=== PATIENT | male | born 1950 | race Caucasian/White ===

== ENCOUNTER 2018-08-30 20:29 | Inpatient (IN) ==
[2018-08-30] MEDS ORDERED: TYLENOL PO ONE (21:32)
--- NOTE | 2018-08-30 22:18 | Diag Imaging Result Doc PS360 ---
EXAM: CHEST-2 VIEWS HISTORY: sob fever TECHNIQUE: Chest two views COMPARISON: 06/09/2016 FINDINGS: Interval development of a large right upper lobe mass. The left lung is well expanded and clear. No cardiomegaly. No vascular distention. No pleural effusions. IMPRESSION: Right upper lobe mass. Electronically signed by Jose Vu 08/30/2018 10:16 PM
[2018-08-30 22:34] LABS: BASO# 0.05 X1000 (0.0-0.2); BASO% 0.3 % (0.0-0.8); EOS# 0.09 X1000 (0.0-0.7); EOS% 0.5 % (0.0-10.0); HEMATOCRIT 27.5 % (42.0-52.0); HEMOGLOBIN 8.7 g/dL (14.0-18.0); IMM GRAN# 0.04 X1000 (0.0-0.04); IMM GRAN% 0.2 % (0.0-0.5); LYMPH# 2.11 X1000 (1.2-3.4); MCH 23.3 PG (27-31); MCHC 31.6 g/dL (33-37); MCV 73.7 FL (81-99); MONO# 1.47 X1000 (0.11-0.59); MONO% 7.7 % (1.7-9.3); MPV 8.2 FL (7.4-10.4); NEUT# 15.42 X1000 (1.4-6.5); NEUT% 80.3 % (42.2-75.2); PLT 638 X1000 (130-400); RBC 3.73 XMIL (4.7-6.1); RDW 16.7 % (11.5-14.5); WBC 19.18 X1000 (4.8-10.8)
[2018-08-30 22:37] LABS: INR 1.12
[2018-08-30 22:38] LABS: PTT 47.8 Seconds (22.3-41.8)
[2018-08-30 22:39] LABS: AGAP 13; ALBUMIN 3.4 g/dL (3.5-5.0); ALKALINE PHOSPHATASE 109 U/L (32-122); BUN 10 mg/dL (8-22); CALCIUM 9.1 mg/dL (8.8-10.2); CHLORIDE 97 mmol/L (98-107); CK PROFILE 42 U/L (24-204); COSMO 269; CREATININE 0.8 mg/dL (0.7-1.2); ESTIMATED GFR > 60; GLUCOSE 104 mg/dL (70-104); GOT 24 U/L (10-34); GPT 24 U/L (10-44); POTASSIUM 4.5 mmol/L (3.5-5.1); SODIUM 135 mmol/L (136-145); TCO2 25 mmol/L (25-35)
[2018-08-30] MEDS ORDERED: ROCEPHIN 1 GM in NS 50 ML IV ONE (22:46)
[2018-08-30] MEDS ORDERED: ZITHROMAX 500 MG/NS 500 MG/250 ML IVPB IV SCH (23:00)
[2018-08-30] MEDS ORDERED: TYLENOL ONE (23:43)
[2018-08-30] MEDS ORDERED: TYLENOL PO PRN (23:53)
[2018-08-30] MEDS ORDERED: ZOFRAN IV PRN (23:53)
[2018-08-30 23:57] LABS: BILIRUBIN URINE NEGATIVE (NEGATIVE); BLOOD URINE 1+ (NEGATIVE); GLUCOSE URINE NEGATIVE (NEGATIVE); KETONE URINE TRACE mg/dL (NEGATIVE); LEUKOCYTES URINE TRACE (NEGATIVE); NITRITE URINE NEGATIVE (NEGATIVE); PROTEIN URINE TRACE mg/dL (NEGATIVE); UROBILINOGEN URINE NORMAL
[2018-08-30] MEDS ORDERED: APRESOLINE IV PRN (23:57)
[2018-08-30 23:59] LABS: URINE BACTERIA 1+ /HFP; URINE CRYSTAL CA OXALATE PRESENT /HPF; URINE EPITHELIAL CELLS <10 /HPF (<10); URINE RBC <10 /HPF (<10); URINE WBC <10 /HPF (<10)
[2018-08-31] LABS: CLARITY CLEAR (CLEAR); COLOR YELLOW; URINE SOURCE CLEAN CATCH
--- NOTE | 2018-08-31 00:05 | PROVIDER DOCUMENTATION ---
This chart was entered by Sierra Forrest Scribe, acting as scribe for Jack Triana CRNP. HPI-General Adult - General Chief Complaint: Cough Stated Complaint: ABNORMAL LABS Time Seen by Provider: 08/30/18 21:09 Source: patient Allergies/Adverse Reactions: Patient Allergies Allergy/AdvReac Type Severity Reaction Status Date / Time No Known Allergies Allergy Verified 08/30/18 21:02 Home Medications: Home Medication List Medication Instructions Recorded Confirmed Last Taken Type Cyanocobalamin 1,000 microgm IM Q30D #10 vial 11/10/15 Unknown Rx Duloxetine [Cymbalta] 30 mg PO QAM #30 capsule 11/10/15 Unknown Rx Fluticasone 50 Mcg Nasal [place] 2 spray CLYDE BID #1 bottle 11/10/15 Unknown Rx [Flonase] LISINOpril [Prinivil] 5 mg PO DAILY #30 tablet 11/10/15 Unknown Rx Mirtazapine [Remeron] 15 mg PO QHS #30 tablet 11/10/15 Unknown Rx Omeprazole [Prilosec] 40 mg PO DAILY@0700 30 Days 11/10/15 Unknown Rx capsule Tamsulosin [Flomax] 0.4 mg PO QHS #30 capsule 11/10/15 Unknown Rx - History of Present Illness -Gen Adult Nature of Presenting Problems: pt is a 68 yr old male presenting from [facility] with report of elevated white count- [id number], and questionable chest xray, pt reports AFC told him to come to ER for further eval. pt was treated approx 3 weeks ago for sinus infection-Augmentin, and has not been able to get over it, pt reports continued low grade fevers for 3 weeks. pt reports fatigue, fever, cough and congestion Location of Pain/Injury: reports: generalized Pain Radiation: reports: no radiation Quality of Pain: reports: aching Severity: reports: mild Onset/Duration: reports: other (3+ weeks) Timing: reports: still present Context/Activities at Onset: reports: light activity Modifying Factors: improves with: analgesics (tylenol-no improvement), other medication (Augmentin without improvement) Associated Symptoms: reports: cough, EENT symptoms, fatigue, fever/chills, sinus congestion/drainage, weakness Similar Symptoms Previously?: Yes Recently seen or treated by another doctor?: Yes (see hpi) Review of Systems - Adult - REVIEW OF SYSTEMS - ADULT Constitutional: reports: fever, fatique Eyes: reports: no symptoms reported Ears, Nose, Mouth & Throat: reports: sinus problem. denies: ear pain, throat pain Cardiovascular: denies: chest pain, palpitations, syncope Respiratory: reports: cough. denies: shortness of breath, wheezing Gastrointestinal: reports: no symptoms reported Genitourinary: reports: no symptoms reported Musculoskeletal: reports: muscle aches Integumentary: reports: no symptoms reported Neurological: reports: headache/migraines. denies: dizziness/vertigo Psychiatric: reports: no symptoms reported Endocrine: reports: no symptoms reported Hematologic/Lymphatic: reports: no symptoms reported Allergic/Immunologic: reports: no symptoms reported All Other Systems: Reviewed and Negative Past History - Adult - PAST MEDICAL HISTORY-ADULT Review of Records: reports: Old Records Reviewed, Nursing Assessment Review, Medications Reviewed, Social history reviewed & non-contributory. Major Childhood Illnesses: reports: denies history Cardiovascular: reports: denies history Respiratory: reports: denies history Gastrointestinal: reports: denies history Obstetrical/Gynecological: reports: denies history Genitourinary: reports: denies history Musculoskeletal: reports: denies history Neurological: reports: denies history Endocrine/Immune: reports: denies history Other Conditions: reports: denies history - IMMUNIZATION STATUS Childhood Immunizations: See Nurse Assessment Flu Vaccine: See Nurse Assessment - FAMILY HISTORY Family History: reviewed, not pertinent - SOCIAL HISTORY Smoking: cigarettes Provider spent 3-5 mins advising pt. on dangers of tobacco.: Discussed manners to quit use, and f/u contacts for add'l counseling. Substance Use: denies Living Situation: family Physical Exam-General - PHYSICAL EXAM-ADULT Initial Vital Signs Reviewed: Yes - CONSTITUTIONAL General Appearance: alert, no apparent distress - EYES Eyes: PERRL/EOMI - HEAD, EARS, NOSE, MOUTH & THROAT HENMT: normocephalic/atraumatic, moist mucous membranes, normal ENT inspection, TMs normal, pharynx normal - NECK Neck: non-tender, full range of motion, supple, normal inspection - RESPIRATORY Respiratory: chest non-tender, lungs clear, normal breath sounds, no pleuratic chest pain, no respiratory distress, no accessory muscle use - CARDIOVASCULAR Cardiovascular: normal peripheral pulses, regular rate, rhythm, no edema - GASTROINTESTINAL (ABDOMEN) Abdominal Exam: normal bowel sounds, non tender, soft - LYMPHATIC Lymphatic: no adenopathy - MUSCULOSKELETAL Back Exam: normal inspection, no CVA tenderness, no vertebral tenderness Extremity: normal range of motion, non-tender, normal inspection - SKIN Integumentary: normal color, normal turgor, warm/dry - NEUROLOGIC Neurologic: grossly normal, no motor/sensory deficits - PSYCHIATRIC Psych/Mental Status: normal mood/affect Progress - PLAN OF CARE/RESULTS Progress/Plan/Lab Results: Vital Signs - 8 hr 08/30/18 20:54 Temperature 100.9 F H Pulse Rate 84 Respiratory Rate 16 Blood Pressure 164/68 O2 Sat by Pulse Oximetry 97 Orders Category Date Time Status Cardiac Monitoring DIRECTED Care 08/30/18 21:14 Active IV Insertion ORDERED Care 08/30/18 21:14 Active CHEST-2 VIEWS [RAD] Stat Exams 08/30/18 21:15 Ordered BLOOD CULTURE [BLDCUL] Stat Lab 08/30/18 21:14 Uncollected CBC WITH DIFF [HEME] Stat Lab 08/30/18 21:14 Uncollected CK PROFILE [SP CHEM] Stat Lab 08/30/18 21:14 Uncollected COMPREHENSIVE METABOLIC PANEL [CHEM] Stat Lab 08/30/18 21:14 Uncollected LACTATE, PLASMA [CHEM] Lab 08/30/18 21:15 Uncollected LACTATE, PLASMA [CHEM] Lab 08/31/18 00:15 Uncollected LACTATE, PLASMA [CHEM] Lab 08/31/18 03:15 Uncollected PROTIME WITH INR [COAG] Stat Lab 08/30/18 21:14 Uncollected PTT [COAG] Stat Lab 08/30/18 21:14 Uncollected TROPONIN T Stat Lab 08/30/18 21:[address] W/POSS RFLX CULT [URINALYSIS] Stat Lab 08/30/18 21:14 Uncollected Acetaminophen [Tylenol] Med 08/30/18 21:32 Discontinued 1,000 mg PO NOW ONE Oxygen Device Stat Oth 08/30/18 21:14 Active Result Diagrams: 08/30/18 22:07 08/30/18 22:07 - REASSESSMENT Reassessment #1 Time Reassessed: 22:48 (Pt resting. Made aware of results and possible admission. agrees with plan) Reassessment #2 Time Reassessed: 23:47 (Informed pt and spouse of admission at [facility]. ) - XRAY 1 XRAY Study: Chest Impression: See EMR Report (Interval development of a large right upper lobe mass. The left lung is well expanded and clear. No cardiomegaly. No vascular distention. No pleural effusions. IMPRESSION: Right upper lobe mass. Electronically signed by Jose Vu 08/30/2018 10:16 PM) - CONSULTS/PCP/HOSPITALIST Notification #1 *Consult/PCP/Hospitalist*: Dr Gandhi Time Discussed: 22:49 (suggests calling [facility] for admission so pt can be consulted by pulmonary) #2 Consult: Dr Cochran Time Discussed: 23:44 Consult Disposition: Admit Departure - Departure Date of Disposition Decision: 08/30/18 Time of Disposition Decision: 22:50 DIAGNOSIS: Lung mass Anemia Qualifiers: Anemia type: unspecified type Qualified Code(s): D64.9 - Anemia, unspecified Disposition: ADMITTED INPATIENT 09 Certified Medical Emergency: Emergent Condition: Fair Referrals and Follow-Ups: None,PCP [Primary Care Provider] - - Critical Care Note This patient required my direct & personal management of CC.: No Attestation - Physician/ GRETCHEN Attestation Patient care was provided by Advanced Practice Provider:: Yes Advanced Practice Provider:: Jack Triana Advanced Practice Provider documentation review:: The Mid-level provider documentation, treatment plan and medical decision making was reviewed by the physician who agrees with all treatment and medical decision making by the P. The physician spent face to face time with patient:: No Advanced Practice Provider documentation review:: Supervising physician onsite and consulted in the evaluation and care of this patient. The physician did not have a face to face encounter with the patient. This chart was documented by the indicated scribe, (Sierra Forrest Scribe) and accurately reflects the services I performed and decisions made by me, Jack Triana CRNP, as attested by the provider's signature.
[2018-08-31] MEDS: NS 1,000 ML IV SCH ×3 (01:45→23:46)
[2018-08-31] MEDS ORDERED: TESSALON ONE (05:04)
[2018-08-31] MEDS ORDERED: TUSSIONEX LIQUID ONE (05:04)
[2018-08-31] MEDS ORDERED: ZOSYN ONE (05:04)
[2018-08-31] MEDS ORDERED: NS 50 ML ONE (05:07)
--- NOTE | 2018-08-31 05:46 | HISTORY AND PHYSICAL ---
CHIEF COMPLAINT: Coughing up blood. HISTORY OF PRESENT ILLNESS: Mr. Somers is a 68-year-old male with a past medical history of hypertension and depression who started having hemoptysis 3 weeks ago. Apparently it has been fairly copious according to the . He originally went to [facility] and was treated for a sinus infection 3 weeks ago. He did not begin to feel better so he came into the emergency room tonight. He was worked up and found to be anemic with a large right upper lung mass on the chest x-ray. He will be admitted to [facility] for further evaluation and treatment. PREVIOUS SURGICAL HISTORY: Hernia repair 22 years ago. SOCIAL HISTORY: Two-thirds of a pack of cigarettes daily. No alcohol. No illicit drugs. FAMILY HISTORY: Mother had breast cancer. Father from complications from emphysema. ALLERGIES: No known drug allergies. HOME MEDICATIONS: A list of home medications is not available at this time. REVIEW OF SYSTEMS: A 14-point review of systems conducted with the patient. Pertinent positives listed above in the HPI. All others are negative. PHYSICAL EXAMINATION: VITAL SIGNS: Temperature 99.8, pulse 88, respirations 18, blood pressure 137/69, oxygen saturation 95%. GENERAL: A 68-year-old male lying in the ER stretcher, alert oriented x3, in no acute distress. HEENT: Head is atraumatic, normocephalic. Pupils equal, round, reactive to light. Extraocular eye movements intact. Sclerae are anicteric. Conjunctivae are pale. Oral mucosa is moist. NECK: Supple. No JVD. No thyromegaly. Trachea is midline. CARDIAC: S1, S2 appreciated. No murmurs, gallops, or rubs. LUNGS: Clear to auscultation except for wheezing in the left lower lobe. No rhonchi or rales. Symmetric rise and fall with respirations. ABDOMEN: Soft, nondistended, nontender. Bowel sounds present in all 4 quadrants, normoactive. No pulsatile mass. No organomegaly. EXTREMITIES: No clubbing, cyanosis, or edema. Two-plus pedal pulses bilaterally. INTEGUMENTARY: Warm, dry and intact. Pale. No acute lesions or rash. NEUROLOGICAL: Alert and oriented x3. Cranial nerves 2-12 grossly intact. DIAGNOSTIC DATA: Chest x-ray shows a large right upper lobe mass. LABORATORY DATA: WBC 19.18, hemoglobin 8.7, hematocrit 27.5, platelet count 638,000. Sodium 135, potassium 4.5, chloride 97, carbon dioxide 25, BUN 10, creatinine 0.8, glucose 104. ASSESSMENT AND PLAN: 1. New lung mass. Consult stretching machine tender frame and oncologist. The patient is not complaining of any pain. Will add Zofran and Tylenol p.r.n. to his medication profile. 2. Possible post obstructive pneumonia. Will start Zosyn 3.375 g q.6 hours. Blood cultures are pending. 3. Leukocytosis secondary to #1 and #2. 4. Anemia. Will recheck laboratory data. He is not at transfusion level at this point. 5. Depression and anxiety. Will continue home medications when reconciled. 6. Hypertension. Will continue home medications when reconciled. Will give hydralazine 10 mg IV p.r.n. now for systolic blood pressure greater than 160. Further recommendations per the patient's clinical course. Dictated by JOEL Flaherty for Zuhair Cochran MD Independent exam and assessment performed by nj. No LNpathy noted in the supraclavicular and axillary areas. CEA ordered. Antitussive agents given to decrease hemoptysis. cc: JOEL Flaherty MD [facility]
[2018-08-31 09:15] LABS: IRON SATURATION 8 %; TIBC 118 ug/dL; TOTAL IRON 10 ug/dL (53-167); UNBOUND IRON 108 ug/dL (112-346)
[2018-08-31 09:29] LABS: AGAP 9; BUN 9 mg/dL (8-22); CALCIUM 8.5 mg/dL (8.8-10.2); CHLORIDE 100 mmol/L (98-107); COSMO 269; CREATININE 0.7 mg/dL (0.7-1.2); ESTIMATED GFR > 60; GLUCOSE 94 mg/dL (70-104); POTASSIUM 4.6 mmol/L (3.5-5.1); SODIUM 135 mmol/L (136-145); TCO2 26 mmol/L (25-35)
[2018-08-31 09:32] LABS: FERRITIN 390 ng/mL (30-400)
[2018-08-31 09:37] LABS: BASO# 0.03 X1000 (0.0-0.2); BASO% 0.2 % (0.0-0.8); EOS% 0.6 % (0.0-10.0); HEMATOCRIT 27.1 % (42.0-52.0); HEMOGLOBIN 8.4 g/dL (14.0-18.0); IMM GRAN# 0.05 X1000 (0.0-0.04); IMM GRAN% 0.3 % (0.0-0.5); LYMPH# 1.81 X1000 (1.2-3.4); LYMPH% 10.5 % (20.5-51.1); MCH 23.3 PG (27-31); MCV 75.3 FL (81-99); MONO# 1.38 X1000 (0.11-0.59); NEUT# 13.82 X1000 (1.4-6.5); NEUT% 80.4 % (42.2-75.2); PLT 621 X1000 (130-400); RDW 16.7 % (11.5-14.5); WBC 17.19 X1000 (4.8-10.8)
[2018-08-31] MEDS: ROCEPHIN 1 GM in NS 50 ML IV SCH (10:45)
--- NOTE | 2018-08-31 15:04 | Diag Imaging Result Doc PS360 ---
EXAM: CT THORAX W/O CONTRAST INDICATION: SOB TECHNIQUE: This exam was performed using automated exposure control, adjustment of mA or kV according to patient size, and/or use of iterative reconstruction technique. COMPARISON: No prior CT is available for comparison. FINDINGS: There is a large right upper lobe apical lung mass measuring approximately 9.2 x 7.3 cm axially that is highly suspicious for neoplasm. It is slightly invading the posterior chest wall near the apex. There is mild erosion of the cortex of the adjacent third rib posteriorly. No local bony metastatic disease is identified, otherwise. There is mild perilesional pneumonitis around the mass. There is a tiny 4 mm nodule in the left hepatic lobe on image 60 of series 3. This is more nonspecific and certainly may represent a tiny granuloma. The lungs are clear, otherwise. There is no pleural fluid collection and no pneumothorax. There are borderline and mildly prominent shotty mediastinal lymph nodes that are nonspecific. The largest is a pretracheal lymph node measuring up to 2.8 cm in the long axis and 1.6 cm in the short axis. IMPRESSION: Large right upper lobe lung mass at the apex causing mild erosion of the posterior aspect of the third rib, highly suspicious for neoplasm. Electronically signed by Desmond Olivia 08/31/2018 3:02 PM
--- NOTE | 2018-08-31 15:40 | Diag Imaging Result Doc PS360 ---
EXAM: CT ABD/PELVIS W/PO AND IV CON INDICATION: new lung mass TECHNIQUE: This exam was performed using automated exposure control, adjustment of mA or kV according to patient size, and/or use of iterative reconstruction technique. COMPARISON: None. FINDINGS: There are a couple of very small low dense foci in the left hepatic lobe that are nonspecific. They do not appear to enhance. They certainly may represent small cysts. Consider continued surveillance is recommended given the findings in the chest, however. The gallbladder, spleen, and pancreas are unremarkable. There is a left adrenal mass measuring 2.0 x 1.7 cm axially. Although it may represent an adenoma, it is nonspecific. A metastatic lesion cannot completely be excluded given the chest findings. There is a small simple appearing left renal cyst. The kidneys are unremarkable, otherwise. The urinary bladder is partially distended. The urinary bladder wall appears mildly thickened. This could be due to underdistention. Correlate clinically to exclude cystitis. There is trace nonspecific free fluid layering in the pelvis. The GI tract is grossly unremarkable. No focal inflammatory changes or free abdominal gas is appreciated. There are lumbar spine degenerative changes. There is nothing to suggest local bony metastatic disease to the abdomen or pelvis. IMPRESSION: 1.Left adrenal mass that is nonspecific and certainly may represent an adenoma. Continued surveillance is recommended given the findings in the chest. 2.A couple of tiny low dense foci involving the left hepatic lobe that are nonspecific but may represent small hepatic cysts. Consider continued surveillance given the findings in the chest. Mild urinary bladder wall thickening that is probably due to underdistention. Correlate clinically to exclude a component of cystitis. Electronically signed by Desmond Olivia 08/31/2018 3:38 PM
[2018-08-31] MEDS: PRILOSEC PO SCH (18:19)
--- NOTE | 2018-08-31 22:24 | CONSULTATION ---
DATE OF CONSULTATION: 08/31/2018 REQUESTING PROVIDER: JOEL Flaherty. REASON FOR CONSULTATION: New lung mass. HISTORY OF PRESENT ILLNESS: This is a 68-year-old, male with a medical history of hypertension, depression, post traumatic stress disorder, and tobacco dependence. He presented to the ER last night from [facility] with leukocytosis and questionable chest x-ray. In the ER, initial workup revealed a large right upper lung mass, leukocytosis, anemia, and thrombocytosis. He has been admitted to the medical floor for further evaluation and management. At the time of my examination, he is resting in bed with eyes closed. His at the bedside reports that he was treated for sinusitis with Augmentin 3 weeks ago. Since then, he started having hemoptysis. He also has low-grade fever, fatigue, worsening productive cough, mild shortness of breath, and chest congestion. He denies night sweating, weight change, chest pain or palpitation. PAST MEDICAL HISTORY: 1. Hypertension. 2. Depression. 3. Post traumatic stress disorder. 4. Tobacco dependence. 5. Hernia repair 22 years ago. SOCIAL HISTORY: Patient lives at home with his . He currently smokes 2/3 packs per day but used to smoke maximally up to 2 packs per day. He has been smoking 51 years. He has no history of alcohol or illicit drug use. FAMILY HISTORY: Positive for COPD and cancer. ALLERGIES: No known drug allergies. REVIEW OF SYSTEMS: A 10-point review of systems was conducted and the pertinent's are listed within the HPI, otherwise noncontributory. PHYSICAL EXAMINATION: Vital Signs: Blood pressure 120/66, pulse 74, respiratory rate 16, oxygen saturation 100% on room air. HEENT: Atraumatic. Trachea midline. Mucosa pink and slightly dry. Respiratory: Even and unlabored. Lung expansion equal bilaterally. Auscultation reveals rhonchi bilaterally. Cardiovascular: Regular rate and rhythm without murmur. Gastrointestinal: Bowel sounds normoactive in all 4 quadrants. Soft, nontender, and nondistended. Extremities: No pedal edema. Neurologic: Alert and oriented x3. Speech fluent. Follows commands. IMAGING DATA: CT chest reveals large right upper lobe lung mass at the apex, causes a mild erosion of the posterior aspect of the third rib, highly suspicious for neoplasm. Mild perilesional pneumonitis around the mass, and a tiny 4 mm nodule in the left hepatic lobe. LAB DATA: White blood cells 17.19, hemoglobin 8.4, hematocrit 27.1, platelet 621,000. Sodium 135, potassium 4.6, chloride 100, carbon dioxide 26, BUN 9, creatinine 0.9. Glucose 94. ASSESSMENT: This is a 68-year-old male with a medical history of hypertension, depression, post traumatic stress disorder, and tobacco dependence. He has been admitted to the medical floor with new lung mass and possible postobstructive pneumonia. 1. New lung mass. CT-guided lung biopsy scheduled tomorrow. Further recommendations pending. I discussed our plan with the patient and his . They showed their understanding and they do not have any questions at this time. Dr. Nelson is on board. 2. Possible postobstructive pneumonia. Continue ceftriaxone and azithromycin. Follow up with chest x-ray and CBC. 3. Tobacco abuse. Educate with patient and his on the importance and the means of smoking cessation. 4. Continue gastrointestinal and deep venous thrombosis prophylaxis. Thank you for the courtesy of this consult. Dictated by JOEL Nash for Dominik Nova MD cc: JOEL Nash MD [facility]
[2018-09-01] MEDS: ZITHROMAX 500 MG/NS 500 MG/250 ML IVPB IV SCH ×2 (00:09→23:08)
[2018-09-01 07:22] LABS: BASO# 0.03 X1000 (0.0-0.2); BASO% 0.2 % (0.0-0.8); EOS# 0.16 X1000 (0.0-0.7); HEMOGLOBIN 8.2 g/dL (14.0-18.0); IMM GRAN# 0.02 X1000 (0.0-0.04); IMM GRAN% 0.1 % (0.0-0.5); INR 1.21; LYMPH# 1.94 X1000 (1.2-3.4); LYMPH% 12.2 % (20.5-51.1); MCH 22.8 PG (27-31); MCHC 30.4 g/dL (33-37); MCV 75.2 FL (81-99); MONO# 1.24 X1000 (0.11-0.59); MONO% 7.8 % (1.7-9.3); MPV 8.9 FL (7.4-10.4); NEUT# 12.52 X1000 (1.4-6.5); NEUT% 78.7 % (42.2-75.2); PLT 620 X1000 (130-400); PROTIME 16.2 Seconds (11.0-16.0); RBC 3.59 XMIL (4.7-6.1); RDW 16.5 % (11.5-14.5); WBC 15.91 X1000 (4.8-10.8)
[2018-09-01 07:23] LABS: PTT 47.5 Seconds (22.3-41.8)
[2018-09-01] MEDS: PRILOSEC PO SCH (07:31)
[2018-09-01 07:33] LABS: AGAP 11; BUN 8 mg/dL (8-22); CALCIUM 9.1 mg/dL (8.8-10.2); CHLORIDE 101 mmol/L (98-107); COSMO 270; CREATININE 0.6 mg/dL (0.7-1.2); ESTIMATED GFR > 60; GLUCOSE 94 mg/dL (70-104); SODIUM 136 mmol/L (136-145); TCO2 24 mmol/L (25-35)
[2018-09-01] MEDS: NS 1,000 ML IV SCH ×3 (09:55→23:08)
[2018-09-01] MEDS: ROCEPHIN 1 GM in NS 50 ML IV SCH (10:15)
[2018-09-01] MEDS: CILOXAN OPHTH SOLN BOTH EYES SCH ×7 (10:30→21:53)
--- NOTE | 2018-09-01 12:59 | Diag Imaging Result Doc PS360 ---
CHEST-2 VIEWS - 09/01/2018 INDICATION: POST BIOPSY COMPARISON: 08/30/2018 FINDINGS: There is no evidence of complication. IMPRESSION: No complication. Electronically signed by Cory Weaver 09/01/2018 12:57 PM
--- NOTE | 2018-09-01 14:31 | Diag Imaging Result Doc PS360 ---
EXAM: BONE SCAN, TOTAL BODY - 08/31/2018 HISTORY: lung mass TECHNIQUE: Radionuclide bone scan. Exam performed using 28.2 mCi technetium 99m MDP administered intravenously. COMPARISON: 08/31/2018 CT thorax without contrast is used for correlation. FINDINGS: There is mild increased activity at midthoracic costovertebral junction on the right. This appears to correspond with degenerative disease visible on the more 01/13/2019 CT thorax. There is increased activity at the upper cervical spine posteriorly on the right, bilateral shoulders, bilateral sternoclavicular joints, bilateral elbows, bilateral hands, bilateral knees, and right foot. The distribution of the increased activity suggests degenerative disease. There is no abnormal activity which is particularly suspicious for metastatic disease identified. IMPRESSION: Scattered areas of increased activity suggestive of degenerative disease. No discrete evidence of metastatic disease to the skeleton. Electronically signed by Haile Okeefe 09/01/2018 2:29 PM
[2018-09-01] MEDS: VENOFER 300 MG in NS 250 ML IV SCH (14:45)
--- NOTE | 2018-09-01 15:12 | PROGRESS NOTE ---
DATE: 09/01/2018 SUBJECTIVE: As per the patient he feels about the same, he is getting today a CT-guided biopsy of the lung mass, CT of the abdomen also showed a left adrenal mass that is nonspecific and certainly may represent an adenoma. Also there is a couple of tiny low-density foci involving of the left hepatic lobe that are nonspecific but may represent a small hepatic cyst. OBJECTIVE: Vital Signs: Temperature 98 degrees, pulse 80, respiratory rate 22, blood pressure 133/63, oxygen saturation 99 on room air. HEENT: Head normocephalic. No trauma. PERRLA. Neck: Supple. No JVD. No masses. Central trachea. Chest: Coarse breath sounds on the left side with some rhonchi. Abdomen: Soft, nontender, nondistended. No hepatosplenomegaly. Extremities: No edema, no clubbing, no cyanosis. Neurological: The patient is alert and oriented x3. No focal deficits. Eyes, his left eye has some discharge and has a pinkish color, no pain. LABORATORY: WBC 15.9, hemoglobin 8.2, hematocrit 27.2, MCV 75.2, platelets 320,000, sodium 136, potassium 4, chloride 101, bicarbonate 24, BUN 8, creatinine 0.6, glucose 94, calcium 9.1. ASSESSMENT AND PLAN: 1. New lung mass, Pulmonary Department and Oncology Department following this patient, he has been placed on medications for possible postobstructive pneumonia, he is getting a CT-guided biopsy of the mass today. 2. Postobstructive pneumonia, continue with antibiotics. 3. Leukocytosis, likely secondary to #1 and 2 getting better. 4. Anemia, we will monitor. Hematology/Oncology on board. 5. Depression and anxiety. Continue with same management. 6. Hypertension. Continue with blood pressure medication, blood pressure has been stable, we will use p.r.n. hydralazine. cc: Aaron Barton MD
--- NOTE | 2018-09-01 15:27 | Diag Imaging Result Doc PS360 ---
CT GUIDED BIOPSY LUNG - 09/01/2018 INDICATION: Lung Mass TECHNIQUE: The risks and benefits of the procedure were discussed with the patient. All questions were answered. Written and verbal informed consent was obtained. Overlying skin was prepped and draped in sterile fashion. Anesthesia was achieved with injection of 10 cc of 1% lidocaine. COMPARISON: 08/31/2018 FINDINGS: The large right upper lobe mass was biopsied with the 6/11 cm 19/20 gauge Inbilinno biopsy needle set. Approximately 10 biopsy specimens were obtained. The needles were withdrawn intact. The patient reported no symptoms from the procedure. IMPRESSION: Successful and uncomplicated CT-guided right lung mass biopsy. Electronically signed by Cory Weaver 09/01/2018 3:25 PM
[2018-09-02] MEDS: CILOXAN OPHTH SOLN BOTH EYES SCH ×12 (02:11→22:07)
[2018-09-02] MEDS: NS 1,000 ML IV SCH ×3 (04:07→22:06)
[2018-09-02] MEDS: PRILOSEC PO SCH (06:20)
[2018-09-02 07:13] LABS: BASO# 0.03 X1000 (0.0-0.2); BASO% 0.2 % (0.0-0.8); EOS# 0.07 X1000 (0.0-0.7); EOS% 0.4 % (0.0-10.0); HEMATOCRIT 24.7 % (42.0-52.0); HEMOGLOBIN 7.5 g/dL (14.0-18.0); IMM GRAN# 0.04 X1000 (0.0-0.04); IMM GRAN% 0.3 % (0.0-0.5); LYMPH# 1.98 X1000 (1.2-3.4); LYMPH% 12.5 % (20.5-51.1); MCH 22.8 PG (27-31); MCHC 30.4 g/dL (33-37); MCV 75.1 FL (81-99); MONO% 9.4 % (1.7-9.3); NEUT# 12.27 X1000 (1.4-6.5); NEUT% 77.2 % (42.2-75.2); PLT 566 X1000 (130-400); RBC 3.29 XMIL (4.7-6.1); RDW 16.4 % (11.5-14.5); WBC 15.89 X1000 (4.8-10.8)
[2018-09-02 07:34] LABS: AGAP 12; BUN 7 mg/dL (8-22); CALCIUM 8.7 mg/dL (8.8-10.2); CHLORIDE 99 mmol/L (98-107); COSMO 266; CREATININE 0.5 mg/dL (0.7-1.2); ESTIMATED GFR > 60; GLUCOSE 96 mg/dL (70-104); POTASSIUM 3.7 mmol/L (3.5-5.1); SODIUM 134 mmol/L (136-145); TCO2 23 mmol/L (25-35)
[2018-09-02] MEDS: VENOFER 300 MG in NS 250 ML IV SCH (08:33)
[2018-09-02] MEDS: ROCEPHIN 1 GM in NS 50 ML IV SCH (10:00)
--- NOTE | 2018-09-02 12:30 | PROGRESS NOTE ---
DATE: 09/02/2018 SUBJECTIVE: No acute events overnight. He had a CT-guided biopsy yesterday without any problem. He is receiving IV iron infusion, tomorrow he will receive the last one, I will discuss the case with Pulmonary Department tomorrow to see if he can go home and follow up as an outpatient. OBJECTIVE: Vital Signs: Temperature 99.8 degrees, pulse 67, respiratory rate 19, blood pressure 108/48, oxygen saturation 96 on room air. HEENT: Head normocephalic. No trauma. PERRLA. Neck: Supple. No JVD. No masses. Central trachea. Chest: Coarse breath sounds on the left side with some rhonchi, mostly at the apex. Abdomen: Soft, nontender, nondistended. No hepatosplenomegaly. Extremities: No edema. No clubbing. No cyanosis. Neurological: The patient is alert and oriented x3. No focal neurological deficits. LABORATORY DATA: WBC 5.8, hemoglobin 7.5, hematocrit 24.7, platelets 566,000. Sodium 134, potassium 3.7, chloride 99, bicarbonate 23, BUN 7, creatinine 0.5, glucose 96, calcium 8.7. ASSESSMENT AND PLAN: 1. New lung mass, Pulmonary department and Oncology department following this patient closely. He just had a CT-guided biopsy done yesterday, he tolerated well the procedure. 2. Likely postobstructive pneumonia. Continue with antibiotics. 3. Leukocytosis, likely secondary to #1 and #2. 4. Anemia, due to iron deficiency. He has been getting iron infusion, tomorrow he will receive the last infusion. 5. Depression and anxiety. Continue with the same management. 6. Hypertension. Continue with same treatment, we will use p.r.n. hydralazine. cc: Aaron Barton MD
[2018-09-02] MEDS: ZITHROMAX 500 MG/NS 500 MG/250 ML IVPB IV SCH (23:08)
[2018-09-03] MEDS: CILOXAN OPHTH SOLN BOTH EYES SCH ×9 (00:56→16:38)
[2018-09-03 07:50] LABS: BASO# 0.03 X1000 (0.0-0.2); BASO% 0.2 % (0.0-0.8); EOS# 0.12 X1000 (0.0-0.7); EOS% 0.7 % (0.0-10.0); HEMATOCRIT 24.4 % (42.0-52.0); HEMOGLOBIN 7.5 g/dL (14.0-18.0); IMM GRAN# 0.05 X1000 (0.0-0.04); IMM GRAN% 0.3 % (0.0-0.5); LYMPH# 2.09 X1000 (1.2-3.4); LYMPH% 12.9 % (20.5-51.1); MCH 23.1 PG (27-31); MCHC 30.7 g/dL (33-37); MCV 75.1 FL (81-99); MONO# 1.45 X1000 (0.11-0.59); MONO% 8.9 % (1.7-9.3); MPV 9.1 FL (7.4-10.4); PLT 593 X1000 (130-400); RBC 3.25 XMIL (4.7-6.1); RDW 16.6 % (11.5-14.5); WBC 16.24 X1000 (4.8-10.8)
[2018-09-03 08:11] LABS: AGAP 13; BUN 6 mg/dL (8-22); CALCIUM 8.5 mg/dL (8.8-10.2); CHLORIDE 99 mmol/L (98-107); COSMO 266; CREATININE 0.7 mg/dL (0.7-1.2); ESTIMATED GFR > 60; GLUCOSE 95 mg/dL (70-104); POTASSIUM 3.8 mmol/L (3.5-5.1); SODIUM 134 mmol/L (136-145); TCO2 22 mmol/L (25-35)
[2018-09-03] MEDS: VENOFER 300 MG in NS 250 ML IV SCH (08:36)
[2018-09-03] MEDS: NS 1,000 ML IV SCH ×2 (08:36→13:11)
[2018-09-03] MEDS: PRILOSEC PO SCH (08:37)
[2018-09-03] MEDS: ROCEPHIN 1 GM in NS 50 ML IV SCH (11:00)
[2018-09-03 12:21] VITALS: BP 115/54
--- NOTE | 2018-09-03 19:02 | DISCHARGE SUMMARY ---
ADMISSION DATE: 08/31/2018 DISCHARGE DATE: 09/03/2018 DISCHARGE DIAGNOSIS: 1. Right lung mass. 2. Post obstructive pneumonia. 3. Anemia, iron deficiency. 4. History of depression and anxiety. 5. Hypertension. PROCEDURES: Chest x-ray dated 08/30/2018 impression, right upper lobe mass. CT scan dated 08/31/2018 impression, large right upper lobe lung mass at the apex causing mild erosion of the posterior aspect of the 3rd rib highly suspicious for neoplasm. Abdomen and pelvis CT scan dated 08/31/2018 impression left adrenal mass that is nonspecific and certainly may represent an adenoma, couple of tiny low dense foci involving the left hepatic lobe that are nonspecific but may represent small hepatic cysts. Bone scan total body done on 08/31/2018 impression scattered areas of increased activity suggestive of degenerative disk, no discrete evidence of metastatic disease to the skeleton. CT guided lung biopsy dated 09/01/2018 impression successful and uncomplicated CT guided right lung mass biopsy. HOSPITAL COURSE: 68-year-old male with a past medical history hypertension, depression who started having hemoptysis 3 weeks ago, apparently is been a fairly amount according to the , he originally went to [facility] and was treated for a sinus infection for 3 weeks, he did not begin to feel better so he came to the emergency department and has been admitted on 08/31/2018. He was worked up and found to be anemic with a large right upper lung mass on the chest x-ray, he was admitted evaluated by Pulmonary Department as well as Hematology/Oncology Department, a CT guided biopsy of the lung has been performed, because of the leukocytosis we believe this patient has pneumonia and we started treating this patient with antibiotics. Since admission the white blood cell count has been decreasing from 19 to 16 today. No fever today but he has a mild low-grade temperature yesterday at 99.8 but upon admission he had a temperature of 100.9 degrees, he is feeling good today, no shortness of breath, no chest pain. Hematology/Oncology Department recommended to treat this patient with iron IV for 3days, today will be his last dose and then he will be discharged home with a strict followup by Pulmonary and Oncology Department. Dr. Nova will evaluate this patient as an outpatient next at 1:30 p.m., the family has been notified as well as the patient and they agree with this, they also need to call for an appointment with Dr. Nelson in 1 to 2 weeks. PHYSICAL EXAMINATION: Temperature 99.4 degrees, pulse 64, respiratory rate 16, blood pressure 115/54, oxygen saturation 98 on room air. HEENT: Head normocephalic. No trauma. PERRLA. Neck: Supple. No JVD. No masses. Central trachea. Chest: Some crepitus at the right upper and mid lung otherwise clear to auscultation. No wheezing, no rales. Abdomen: Soft, nontender, nondistended. No hepatosplenomegaly. Extremities: No edema, no clubbing, no cyanosis. Neurologic: The patient is alert and oriented x3. No focal deficits. LABORATORY: WBC 16.2, hemoglobin 7.5, hematocrit 24.7, MCV 75, platelet 593,000, sodium 134, potassium 3.8, chloride 99, bicarbonate 22, BUN 6, creatinine 0.7, glucose 95, calcium 8.5. DISCHARGE MEDICATIONS: Tylenol 650 mg p.o. q.6 hours as needed for fever, Omnicef 300 mg p.o. twice a day, omeprazole 40 mg p.o. daily, ciprofloxacin ophthalmic solution 2 drops both eyes every 4 hours, [place] 5 one tablet p.o. every 6 hours as needed for pain, azithromycin 200 mg p.o. daily. FOLLOWUP: By Hematology/Oncology Department and with Pulmonary Department, he already will have an appointment with Pulmonary Department next at 1:30 p.m. TIME SPENT: 35 minutes. cc: Aaron Barton MD
== END 2018-09-03 16:21 | disposition home or self-care (01) | DRG 180 ==
LOC: P.ED → ED → P.ED 20:29 → 3N 08-31 06:50 → SUATTDRO 08-31 06:58
PROVIDERS: ATTEND Internal Medicine
CPT/HCPCS: 32405; 71020; 71046; 71250; 74177; 77012; 78306; 80048; 80053; 81001; 82378; 82550; 82607; 82728; 82746; 83540; 83550; 83605; 84443; 84484; 85025; 85610; 85730; 87040; 87088; 88305; 94761; 96365; 96367; 99285; A9270; A9503; J0456; J0696; J1756; J2543; J7030; J7050; Q9967

== ENCOUNTER 2018-09-22 21:12 | Inpatient (IN) ==
[2018-09-22 22:14] LABS: BASO# 0.02 X1000 (0.0-0.2); BASO% 0.1 % (0.0-0.8); HEMATOCRIT 28.8 % (42.0-52.0); HEMOGLOBIN 9.2 g/dL (14.0-18.0); LYMPH# 1.21 X1000 (1.2-3.4); LYMPH% 5.6 % (20.5-51.1); MCH 24.8 PG (27-31); MCHC 31.9 g/dL (33-37); MCV 77.6 FL (81-99); MONO# 0.54 X1000 (0.11-0.59); MONO% 2.5 % (1.7-9.3); MPV 8.9 FL (7.4-10.4); NEUT# 19.73 X1000 (1.4-6.5); NEUT% 91.8 % (42.2-75.2); PLT 480 X1000 (130-400); RBC 3.71 XMIL (4.7-6.1); RDW 19.6 % (11.5-14.5)
[2018-09-22 22:23] LABS: INR 1.13; PROTIME 15.5 Seconds (11.0-16.0)
[2018-09-22 22:24] LABS: PTT 39.9 Seconds (22.3-41.8)
[2018-09-22 22:45] LABS: AGAP 13; ALB/GLOB RATIO 0.9; ALKALINE PHOSPHATASE 110 U/L (32-122); BUN 17 mg/dL (8-22); CALCIUM 8.9 mg/dL (8.8-10.2); CHLORIDE 96 mmol/L (98-107); CK PROFILE 14 U/L (24-204); COSMO 262; CREATININE 0.7 mg/dL (0.7-1.2); ESTIMATED GFR > 60; GLUCOSE 94 mg/dL (70-104); GOT 23 U/L (10-34); GPT 32 U/L (10-44); SODIUM 130 mmol/L (136-145); TCO2 21 mmol/L (25-35); TOTAL BILIRUBIN 0.79 mg/dL (0.20-1.00); TOTAL PROTEIN 6.5 g/dL (6.3-8.3)
[2018-09-22] MEDS ORDERED: NS 1,000 ML IV ONE ×2 (23:27→23:28)
[2018-09-23] MEDS ORDERED: NORCO-5 PO ONE (00:02)
[2018-09-23] MEDS ORDERED: ROCEPHIN 2 GM in NS 50 ML IV ONE (02:04)
[2018-09-23 02:09] LABS: URINE SOURCE CLEAN CATCH
[2018-09-23 02:15] LABS: BILIRUBIN URINE NEGATIVE (NEGATIVE); BLOOD URINE TRACE (NEGATIVE); COLOR ORANGE; GLUCOSE URINE NEGATIVE (NEGATIVE); KETONE URINE NEGATIVE (NEGATIVE); LEUKOCYTES URINE NEGATIVE (NEGATIVE); NITRITE URINE NEGATIVE (NEGATIVE); PH URINE 5.5; PROTEIN URINE NEGATIVE (NEGATIVE); SP GRAVITY URINE 1.032; TURBIDITY URINE CLEAR (CLEAR); UROBILINOGEN URINE NORMAL (NORMAL)
[2018-09-23] MEDS ORDERED: VANCOMYCIN IV PER PHARMACY MISC SCH (02:15)
[2018-09-23 02:16] LABS: UR EPITHELIAL CELLS <10 /HPF (<10); URINE BACTERIA NEGATIVE /HPF; URINE RBC <10 /HPF (<10); URINE WBC <10 /HPF (<10)
[2018-09-23] MEDS ORDERED: MAXIPIME 1 GM in NS 50 ML IV ONE (02:22)
--- NOTE | 2018-09-23 02:56 | PROVIDER DOCUMENTATION ---
This chart was entered by Patti Olivia Scribe, acting as scribe for Jaime Cochran MD. HPI-General Adult - General Chief Complaint: Altered Mental Status Stated Complaint: FEVER (CHEMO PT.)DISORIENTED, Time Seen by Provider: 09/22/18 22:54 Source: family Allergies/Adverse Reactions: Patient Allergies Allergy/AdvReac Type Severity Reaction Status Date / Time No Known Allergies Allergy Verified 09/23/18 00:47 Home Medications: Home Medication List Medication Instructions Recorded Confirmed Last Taken Type Hydrocodone/APAP 5 mg/325 mg 1 ea PO Q6H PRN PRN #10 tab 09/03/18 09/23/18 09/22/18 Rx [Sayner-5] Dronabinol 1 cap PO BID 09/23/18 09/23/18 Unknown History Levofloxacin [Levaquin] 1 tab PO DAILY 09/23/18 09/23/18 Unknown History Ondansetron [Zofran] 1 tab PO TID PRN 09/23/18 09/23/18 Unknown History - History of Present Illness -Gen Adult Nature of Presenting Problems: 68 yof presents w/ to er w/co is historian for pt. pt was in hospital 1 month ago and dx w/pneumonia (d/c w/azythromycin) and also NSCLC. pt had first round chemo on this week. called Dr. Nelson b/c pt had fever of 101.2 at home at 0800 this am and was rx Levioquin 500mg and pt took 1 dose today. pt also went and got 1 unit of blood and given tylenol around 1500. states transfusion went well. pt around 1900 became nonresponsive, confused and temp 101.3. Review of Systems - Adult - REVIEW OF SYSTEMS - ADULT ROS:: ROS per family () Constitutional: reports: see HPI, fever (99.7 in er) Eyes: reports: no symptoms reported Ears, Nose, Mouth & Throat: reports: no symptoms reported Cardiovascular: reports: no symptoms reported Respiratory: reports: no symptoms reported Gastrointestinal: reports: no symptoms reported Genitourinary: reports: no symptoms reported Musculoskeletal: reports: no symptoms reported Integumentary: reports: no symptoms reported Neurological: reports: see HPI, other (nonresponsive, confused). denies: dizz iness/vertigo, headache/migraines, paresthesia, seizure, slurred speech Psychiatric: reports: no symptoms reported Endocrine: reports: no symptoms reported Hematologic/Lymphatic: reports: no symptoms reported Allergic/Immunologic: reports: no symptoms reported All Other Systems: Reviewed and Negative Past History - Adult - PAST MEDICAL HISTORY-ADULT Review of Records: reports: Old Records Reviewed, Nursing Assessment Review, Medications Reviewed, Social history reviewed & non-contributory. Major Childhood Illnesses: reports: denies history Cardiovascular: reports: HTN Respiratory: reports: cancer (NSCLC) Gastrointestinal: reports: denies history Obstetrical/Gynecological: reports: denies history Genitourinary: reports: denies history Musculoskeletal: reports: denies history Neurological: reports: denies history Endocrine/Immune: reports: denies history Other Conditions: reports: denies history - IMMUNIZATION STATUS Childhood Immunizations: See Nurse Assessment Flu Vaccine: See Nurse Assessment - FAMILY HISTORY Family History: reviewed, not pertinent - SOCIAL HISTORY Smoking: non-smoker Substance Use: none/never Physical Exam-General - PHYSICAL EXAM-ADULT Initial Vital Signs Reviewed: Yes - CONSTITUTIONAL General Appearance: other (nonresponsive, confused, Alert and oriented 2/5). negative: appears well, alert, no apparent distress - EYES Eyes: PERRL/EOMI - HEAD, EARS, NOSE, MOUTH & THROAT HENMT: normocephalic/atraumatic, moist mucous membranes, normal ENT inspection - NECK Neck: non-tender, full range of motion, supple, normal inspection - RESPIRATORY Respiratory: chest non-tender, lungs clear, normal breath sounds, no pleuratic chest pain, no respiratory distress, no accessory muscle use - CARDIOVASCULAR Cardiovascular: normal peripheral pulses, regular rate, rhythm - GASTROINTESTINAL (ABDOMEN) Abdominal Exam: normal bowel sounds, non tender, soft, no organomegaly, no pulsatile mass - LYMPHATIC Lymphatic: no adenopathy - MUSCULOSKELETAL Back Exam: normal inspection, no CVA tenderness, no vertebral tenderness Extremity: normal range of motion, non-tender, normal inspection Peripheral Pulses: radial (R): 2+, radial (L): 2+ - SKIN Integumentary: normal color, normal turgor, warm/dry - NEUROLOGIC Neurologic: cardiovascular technologist II-XII nml as tested, grossly normal, no motor/sensory deficits - PSYCHIATRIC Psych/Mental Status: normal mood/affect, normal thought content, normal thought process, oriented x 3 Progress - PLAN OF CARE/RESULTS Progress/Plan/Lab Results: Vital Signs - 8 hr 09/22/18 21:41 Temperature 99.7 F H Pulse Rate 104 H Respiratory Rate 16 Blood Pressure 111/64 O2 Sat by Pulse Oximetry 93 L Laboratory Results - last 24 hr 09/22/18 09/22/18 09/22/18 21:48 21:48 21:48 WBC 21.50 H RBC 3.71 L Hgb 9.2 L D Hct 28.8 L MCV 77.6 L MCH 24.8 L MCHC 31.9 L RDW Std Deviation 19.6 H Plt Count 480 H MPV 8.9 Neut % (Auto) 91.8 H Lymph % (Auto) 5.6 L [place] % (Auto) 2.5 Eos % (Auto) 0.0 Baso % (Auto) 0.1 Neut # (Auto) 19.73 H Lymph # (Auto) 1.21 [place] # (Auto) 0.54 Eos # (Auto) 0.00 Baso # (Auto) 0.02 PT 15.5 INR 1.13 PTT (Actin FS) 39.9 Sodium 130 L Potassium 5.0 Chloride 96 L Carbon Dioxide 21 L Anion Gap 13 BUN 17 Creatinine 0.7 Estimated GFR/1.73 m2 > 60 BUN/Creatinine Ratio 24 Glucose 94 Calculated Osmolality 262 Calcium 8.9 Total Bilirubin 0.79 AST 23 ALT 32 Alkaline Phosphatase 110 Creatine Kinase 14 L Troponin T Total Protein 6.5 Albumin 3.0 L Globulin 3.5 Albumin/Globulin Ratio 0.9 09/22/18 21:48 WBC RBC Hgb Hct MCV MCH MCHC RDW Std Deviation Plt Count MPV Neut % (Auto) Lymph % (Auto) [place] % (Auto) Eos % (Auto) Baso % (Auto) Neut # (Auto) Lymph # (Auto) [place] # (Auto) Eos # (Auto) Baso # (Auto) PT INR PTT (Actin FS) Sodium Potassium Chloride Carbon Dioxide Anion Gap BUN Creatinine Estimated GFR/1.73 m2 BUN/Creatinine Ratio Glucose Calculated Osmolality Calcium Total Bilirubin AST ALT Alkaline Phosphatase Creatine Kinase Troponin T < 0.010 Total Protein Albumin Globulin Albumin/Globulin Ratio Orders Category Date Time Status Cardiac Monitoring DIRECTED Care 09/22/18 21:53 Active Oxygen Therapy- ED Nursing DIRECTED Care 09/22/18 21:53 Active Saline Loc NOW Care 09/22/18 21:53 Active CHEST-2 VIEWS [RAD] Stat Exams 09/22/18 22:01 Taken CBC WITH ELECTRONIC DIFF [HEME] Stat Lab 09/22/18 21:48 Completed CK PROFILE [SP CHEM] Stat Lab 09/22/18 21:48 Completed COMPREHENSIVE METABOLIC PANEL [CHEM] Stat Lab 09/22/18 21:48 Completed LACTATE, PLASMA [CHEM] Stat Lab 09/22/18 21:59 Ordered PROTIME WITH INR [COAG] Stat Lab 09/22/18 21:48 Completed PTT [COAG] Stat Lab 09/22/18 21:48 Completed TROPONIN T Stat Lab 09/22/18 21:48 Completed URINALYSIS W/POSS RFLX CULT [URINALYSIS] Stat Lab 09/22/18 23:05 Uncollected URINALYSIS [URINALYSIS] Stat Lab 09/22/18 21:53 Uncollected Altered Mental Status Stat Oth 09/22/18 21:53 Ordered Result Diagrams: 09/22/18 21:48 09/22/18 21:48 - REASSESSMENT Reassessment #1 Time Reassessed: 02:25 Status: other (THIS IS A 68 YEAR OLD MALE THAT WAS ADMITTED 1 MONTH AGO FOR PNA FOUND TO HAVE NSCLC WHO IS S/P FIRST CHEMO TX THIS PAST TUESDAY CAME IN TODAY WITH CONCERN OF FEVER OF 101.2 THIS MORNING AND 101.3 THIS AFTERNOON WITH CONFUSION. LABS REVEALING NEUTROPHILIC LEUKOCYTOSIS WITH CURRENTLY NO OBVIOUS SOURCE OF INFECTION. I HAVE STARTED PATIENT ON CEFEPIME AND VANOCMYCIN GIVEN PATIENT WAS RECENTLY ADMITTED TO THE HOSPITAL. I WILL CONSULT HOSPITALIST FOR OBSERVATION/ADMISSION.) Reassessment #2 Time Reassessed: 02:55 Status: other (SPOKE TO HOSPITALIST; APPRECIATE THEIR ASSISTANC.E) - CT/MRI 1 CT Study: Head (NO ACUTE INTRACRANIAL INJURY. SPECIFICALLY, NO EVIDENCE OF INTRACRANIAL HEMORRHAGE.), Thorax (LARGE RIGHT UPPER LOBE MASS MEASURING UP TO 9CM HAS AREA OF INTERNAL HYPOATTENUATION AND POCKETS OF AIR SUGGESTIVE NECROSIS. MASS DIRECTLY ABUTS THE PLEURA BOTH SUPERIOLY AND POSTERIORLY. RECOMMEND COMPARISON WITH PRIOR IMAGES. SMALL PERICARDIAL EFFUSION. 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 NATA KOTHARI MD) Departure - Departure Date of Disposition Decision: 09/23/18 Time of Disposition Decision: 02:55 DIAGNOSIS: Neutrophilic leukocytosis, Elevated WBC count, Metabolic encephalopathy Disposition: ADMITTED INPATIENT 09 Certified Medical Emergency: Emergent Condition: Fair Referrals and Follow-Ups: Valentin Nelson MD [Primary Care Provider] - - Critical Care Note This patient required my direct & personal management of CC.: No Attestation - Physician/ GRETCHEN Attestation Patient care was provided by Advanced Practice Provider:: No The physician spent face to face time with patient:: Yes Advanced Practice Provider documentation review:: Supervising physician onsite and consulted in the evaluation and care of this patient. The physician did have a face to face encounter with the patient. This chart was documented by the indicated scribe, (Patti Olivia, Asad) and accurately reflects the services I performed and decisions made by me, Jaime Cochran MD, as attested by the provider's signature.
[2018-09-23 03:29] LABS: RETIC% 0.41 % (0.8-2.1); RETIC-HE 26.9 PG (28.2-36.6)
[2018-09-23] MEDS ORDERED: VANCOMYCIN 2,250 MG in NS 500 ML IV ONE (03:30)
[2018-09-23] MEDS ORDERED: TYLENOL PO PRN (04:25)
[2018-09-23] MEDS ORDERED: ZOFRAN IV PRN (04:25)
[2018-09-23] MEDS ORDERED: FLOMAX PO ONE (04:25)
[2018-09-23 04:40] LABS: FERRITIN 1671 ng/mL (30-400)
[2018-09-23] MEDS: LOVENOX SUBQ SCH (05:30)
[2018-09-23] MEDS: NS 1,000 ML IV SCH ×3 (05:30→18:28)
--- NOTE | 2018-09-23 07:33 | Diag Imaging Result Doc PS360 ---
EXAM: CHEST-2 VIEWS - 09/22/2018 HISTORY: ams TECHNIQUE: Chest two views COMPARISON: 09/01/2018 FINDINGS: There is been apparent interval enlargement of the large rounded right upper lobe/apical opacity compared to prior. The remainder lungs appear clear. Inspiration is mildly shallow. There is no pleural effusion or pneumothorax identified. Heart size is normal. IMPRESSION: Mildly shallow inspiration. Some interval enlargement of the large rounded right upper lobe/apical opacity. No other acute changes. Electronically signed by Haile Okeefe 09/23/2018 7:31 AM
--- NOTE | 2018-09-23 07:56 | Diag Imaging Result Doc PS360 ---
EXAM: CT HEAD W/O CONTRAST - 09/23/2018 HISTORY: CONFUSION TECHNIQUE: CT head without contrast COMPARISON: 11/07/2015 FINDINGS: There is no evidence of intracranial hemorrhage, mass effect, midline shift, or hydrocephalus. 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 There are mild chronic microvascular ischemic changes. There is no indication of recent infarct, although acute infarcts may not be immediately visible. Visualized portions of paranasal sinuses and mastoid air cells appear clear. IMPRESSION: No visible acute intracranial abnormality. No hemorrhage or mass effect. The on-call radiologist provided preliminary results at 1:49 AM on 09/23/2018. This exam was performed using automated exposure control, adjustment of mA or kV according to patient size, and/or use of iterative reconstruction technique. Electronically signed by Haile Okeefe 09/23/2018 7:54 AM
[2018-09-23] MEDS ORDERED: NORCO-5 PO PRN (08:00)
--- NOTE | 2018-09-23 08:05 | Diag Imaging Result Doc PS360 ---
EXAM: CT THORAX W/CONTRAST - 09/23/2018 HISTORY: NSCLC S/P PNA 1 MONTH AGO CAME WITH CONFUSION + TECHNIQUE: CT thorax with intravenous contrast COMPARISON: 08/31/2018 FINDINGS: There is a 9.7 x 8.8 cm in maximum AP dimensions mass at the superior right upper lobe. This measures 9.2 x 7.3 cm on prior exam. There is low-density within the mass with pockets of anterior, suggesting necrosis. There is mild mediastinal adenopathy similar to prior. There is a 1.8 cm left adrenal nodule similar to prior. Adrenal metastasis cannot be excluded. The remainder the lungs appear essentially clear. There is no pleural effusion or pneumothorax identified. IMPRESSION: Some interval enlargement of the right upper lobe mass compared to prior. There is low-density within the mass with pockets of air, which suggests necrosis. Stable mild mediastinal adenopathy. Stable 1.8 cm left adrenal nodule. The supervisor electronics testing radiologist provided preliminary results at 1:56 AM on 09/23/2018. This exam was performed using automated exposure control, adjustment of mA or kV according to patient size, and/or use of iterative reconstruction technique. Electronically signed by Haile Okeefe 09/23/2018 8:03 AM
--- NOTE | 2018-09-23 08:41 | HISTORY AND PHYSICAL ---
REASON FOR ADMISSION: Intermittent fever and weakness today. HISTORY OF PRESENT ILLNESS: Mr. Kvng Somers is a 68-year-old man recently diagnosed with non- small cell cancer stage III. He underwent chemotherapy [address] Nelson's office. He was scheduled to undergo radiation, but the patient is too weak to undergo this, too. He came in today because yesterday morning, he was noted to be very weak, weaker than usual, confused. When his checked him, noted he had a fever of 102. Brought him to see Dr. Nelson in the early hours of yesterday morning and had IV fluids. It was noted he had lost 1 g of hemoglobin from last week and was sent to the ER where he received 1 unit of packed red blood cells. 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 A few hours after he got home, he started having similar symptoms of weakness, confusion, and a fever of 101. He was then told to go back to the ER for possible admission. When I saw the patient, he was alert and oriented x3, said he felt better. Denies any chest pain, any other cardiorespiratory complaints other than chronic cough which is nonproductive. He said his appetite is slowly improving. Denies any arthralgia or rash. Denies any GI complaints. Denies any palpitations or lightheadedness. Denied any focal neurological complaints. He does admit to having a longstanding history of urinary hesitancy, straining, poor urinary flow. Denies any dysuria, flank pain. Says he has sometimes tinged blood in his urine which is not unusual for him. REVIEW OF SYSTEMS: Twelve system review was done, and positive findings are per HPI. ALLERGIES: No known allergies. HOME MEDICATIONS: He is on [place] 5 mg q.6 p.r.n., Zofran 8 mg t.i.d. p.r.n., Levaquin 500 mg started just today, dronabinol 5 mg b.i.d. PAST SURGICAL HISTORY: He underwent recent lung biopsy a few weeks ago, hernia repair 22 years ago. SOCIAL HISTORY: He smokes approximately a pack a day. No alcohol or illicit drug use. and lives with his . FAMILY HISTORY: Mother had breast cancer. Father had COPD. DIAGNOSTIC DATA: White count is 21,000, hemoglobin and hematocrit are 9 and 28, MCV is 77, platelet count 480, with 91% neutrophils. Sodium is 130, BUN is 17, creatinine 0.7. Anemia workup was negative. Troponin negative. Lactate is normal. Urinalysis with trace blood. CT of chest, chest film and head CT all were grossly unremarkable, this is preliminary report, official report is pending. PHYSICAL EXAMINATION: VITAL SIGNS: Blood pressure is 113/60, heart rate 72, respiratory rate 26, temperature 97.9, saturation 99% on room air. GENERAL: He is a middle age man who is in no acute distress. He is alert and oriented x3. Normal mood and affect. HEENT: Head is normocephalic and atraumatic. Eyes PERRL, EOM intact. Anicteric and mildly pale. ENT with normal exam. Mouth with xerostomia. No exudates. No erythema. No symptoms of cyanosis. NECK: Supple. No JVD or carotid bruits. No thyromegaly. CHEST: Clear to auscultation with good entry into both lung chambers. CARDIOVASCULAR: First and second heart sounds heard. No gallops, murmurs or rubs. Rhythm is regular. ABDOMEN: Full, soft. No hepatosplenomegaly. Bowel sounds are normal. No CVA tenderness. RECTAL: Exam deferred. EXTREMITIES: The patient has good distal pulse volumes in all extremities. Regular, symmetrical. No edema, clubbing or cyanosis. NEUROLOGICAL: No gross focal deficits. SKIN: Intact. No breakdown or erythema. MUSCULOSKELETAL: Normal. ASSESSMENT: 1. Febrile illness, on chemotherapy. 2. Dehydration. 3. Non-small cell lung cancer. 4. Prostatism. PLAN: The patient will be started on antibiotics to cover primarily gram- negative rods which I do feel may be the likely pathogen from possible GI translocation into the blood. Also could be subclinical prostatitis based on the patient's clinical presentation. We will hydrate the patient also and treat symptomatically for fever, nausea and vomiting. Consider starting the patient on Flomax and check a PSA level. Consult ID and Dr. Nelson to see the patient. Follow up labs daily to document any improvement in leukocytosis. cc: MD Valentin Rico MD [facility]
[2018-09-23] MEDS: MARINOL PO SCH ×2 (10:50→20:51)
[2018-09-23] MEDS: MAXIPIME 2 GM in NS 100 ML IV SCH ×2 (11:52→20:47)
--- NOTE | 2018-09-23 13:23 | PROGRESS NOTE ---
DATE: 09/23/2018 This is a patient of Dr. Valentin Nelson. He had finished some chemotherapy last week, has intermittent fever and weakness. A 68-year-old recently diagnosed with non-small cell lung cancer, stage III. He underwent chemotherapy 3 days before this admission in Dr. Nelson's office. He was scheduled undergo radiation. The patient was too weak to undergo this. He came in on 09/23/2018 early this morning. The day before he noted to be very weak and was having some fever, temp 102 [address] He has saw Dr[address] Nelson yesterday morning and had some IV fluids. I think they gave him 1 unit of packed red blood cells and started having some weakness and confusion. So, admitted for febrile illness on chemotherapy, a little dehydration, stage III non- small cell lung cancer exam today. PHYSICAL EXAMINATION: General: His states he is better, awake and alert. He has been eating. Vital Signs: Temp 98.5 degrees, pulse 76, respirations 18, blood pressure 123/65. HEENT: Pupils are equal and round. Lungs: Are clear in all lung chamebrs. Cardiovascular: Regular rhythm and rate without murmurs or S3. Eyes: Conjunctiva pink. Extremities: No pedal edema. LABORATORY DATA: White count 88980, hematocrit is 28 hemoglobin 9.2, platelet count 480,000. Sodium 130, potassium 5.0, chloride 96, BUN 17, creatinine 0.7. Blood sugar 94. AST 23, ALT 32, alkaline phosphatase 110. Troponin less than 0.01. Pro time was 15.5, PTT was 39. Urinalysis unremarkable. Chest CT appears to be stable, enlargement of the right upper lobe mass compared with prior exam. There is low density within the mass, pockets of air suggesting necrosis. There was a 1.8 cm left adrenal nodule, otherwise unremarkable. Chest x-ray mildly shallow inspiration, some interval enlargement in large rounded right upper lobe apical opacity. Head CT without contrast: No visible acute intracranial abnormality. No hemorrhage or mass effect. ASSESSMENT AND PLAN: 1. Febrile illness on chemotherapy. Continue antibiotics. 2. Dehydration. Continue IV fluids. 3. Non-small cell lung cancer, stage III. The patient is on ceftriaxone 1 g and 1 g loading and given 1 g IV q.24 hours, Flomax 0.4 mg a day, Marinol 5 mg b.i.d., Lovenox 40 mg subcutaneous q.24 hours, hydrocodone 5 mg, I think he was just given 1 dose yesterday, cefepime 1 g IV given 1 dose. cc: Franko Heath MD
[2018-09-23] MEDS ORDERED: VANCOMYCIN 1,700 MG in NS 250 ML IV SCH (15:30)
[2018-09-23] MEDS ORDERED: FLOMAX PO SCH (21:00)
[2018-09-24] MEDS: NS 1,000 ML IV SCH ×2 (02:30→09:59)
[2018-09-24] MEDS: MAXIPIME 2 GM in NS 100 ML IV SCH ×2 (04:20→12:29)
[2018-09-24] MEDS: LOVENOX SUBQ SCH (04:20)
[2018-09-24 07:25] LABS: BASO# 0.02 X1000 (0.0-0.2); BASO% 0.1 % (0.0-0.8); EOS# 0.04 X1000 (0.0-0.7); EOS% 0.3 % (0.0-10.0); HEMATOCRIT 24.8 % (42.0-52.0); HEMOGLOBIN 7.6 g/dL (14.0-18.0); IMM GRAN# 0.06 X1000 (0.0-0.04); IMM GRAN% 0.4 % (0.0-0.5); LYMPH# 1.43 X1000 (1.2-3.4); MCH 24.1 PG (27-31); MCHC 30.6 g/dL (33-37); MCV 78.7 FL (81-99); MONO# 0.39 X1000 (0.11-0.59); MONO% 2.7 % (1.7-9.3); MPV 8.9 FL (7.4-10.4); NEUT% 86.5 % (42.2-75.2); PLT 371 X1000 (130-400); RBC 3.15 XMIL (4.7-6.1); RDW 19.4 % (11.5-14.5); WBC 14.34 X1000 (4.8-10.8)
[2018-09-24 07:39] LABS: BANDS 8 % (0-1); LYMPHS 14 % (21-51); MONO 2 % (1-9); SEGS 74 % (42-75)
[2018-09-24 07:57] LABS: AGAP 8; BUN 10 mg/dL (8-22); CHLORIDE 103 mmol/L (98-107); COSMO 266; CREATININE 0.5 mg/dL (0.7-1.2); ESTIMATED GFR > 60; GLUCOSE 100 mg/dL (70-104); MAGNESIUM 1.7 mg/dL (1.5-2.7); POTASSIUM 3.9 mmol/L (3.5-5.1); SODIUM 133 mmol/L (136-145); TCO2 22 mmol/L (25-35)
[2018-09-24] MEDS: MARINOL PO SCH (09:58)
[2018-09-24] MEDS ORDERED: VANCOMYCIN IV PER PHARMACY MISC SCH (13:30)
[2018-09-24 13:45] VITALS: BP 143/73
--- NOTE | 2018-09-24 14:12 | INFECTIOUS DISEASE PROGRESS NO ---
DATE: 09/24/2018 CONCLUSION: The patient was seen for evaluation of fever. It is interesting to note that since the patient was admitted the hospital and started on antibiotics, he has not had fever and his white blood cells coming down. Therefore I think the patient has an infection as the cause of his fever and leukocytosis. His urinalysis indicates that he does not have a urinary tract infection. He does have a right upper lobe mass which on biopsy is cancer. However, it now has developed necrosis and I think it is possible that he has a secondary infection in the right upper lobe mass. RECOMMENDATIONS: I agree with treating the patient with cefepime and I have added back vancomycin. DISCUSSION: The patient has recently been diagnosed with lung cancer. He is undergone chemotherapy. He has developed fever recently. He also in the past 3 days besides fever he has had an altered mental status. He has not been febrile since after he came in the hospital and as mentioned above, the white blood cell count is decreasing. The patient's CBC now shows a white count down to 14,340, hemoglobin 7.6, and platelet count 371,000. Creatinine is 0.5. GFR is greater than 60. Liver function studies are normal. Blood cultures are pending. CT scan of the head was normal. CT of the chest showed increasing size of the right upper lobe mass but it has developed necrosis. Blood cultures have been drawn and the results are pending. PAST MEDICAL HISTORY/REVIEW OF SYSTEMS: Eyes and ears: He can hear and see okay. Neck: No pain. Respiratory: See present illness. Cardiac: No nausea, vomiting or diarrhea. : No dysuria or flank pain. Neurologic: No seizures. No loss of motor or sensory function. Integument: No rash. PREVIOUS HOSPITALIZATIONS AND OPERATIONS: He has had a hernia repair and a lung biopsy. He has been in the hospital for chemotherapy. MEDICAL DISEASES: Positive for lung cancer. INFECTIOUS DISEASE HISTORY: Positive for bronchitis. FAMILY HISTORY: Positive for diabetes mellitus, hypertension and cancer. SOCIAL HISTORY: [place] He smokes cigarettes but does not drink alcoholic beverages or abuse drugs. He has dogs for pets. He is . ALLERGIES: His chart lists no known drug allergies. HOME MEDICATIONS: Include dronabinol, hydrocodone, Levaquin and Zofran. PHYSICAL EXAMINATION: Vital Signs: Temperature is 98.6 degrees, pulse 71, respirations 16, blood pressure 125/56. General: This is a somewhat ill-appearing, elderly male. He is in no acute distress. Head, eyes, ears, nose, and throat: He can hear my spoken words and see near objects. Sinuses are not tender. He does not have any white patches on his tongue. Neck: No pain with movement. Lungs: Clear to auscultation. Cardiovascular: Regular heart rate. Abdomen: Soft and nontender. Neurologic: The patient is awake. He can move his extremities. There is no tremor. His sensation was intact to touch. His memory as regarding his medical history was grossly intact. I should note that when I was talking to the patient at times, his answered the questions, so it may be that the patient does have some problem with memory. Integument: No rash noted. Thank you for the consult. cc: Juan Locke MD
--- NOTE | 2018-09-24 15:19 | DISCHARGE SUMMARY ---
ADMISSION DATE: 09/23/2018 DISCHARGE DATE: 09/24/2018 HISTORY AND HOSPITAL COURSE: He is a patient of Dr. Valentin Nelson. This is a 68-year-old diagnosed with non-small cell cancer stage III. He underwent chemotherapy 3 days before admission. Scheduled to undergo radiation treatment. But the patient came into the emergency room and noted that he was very weak, there was some confusion. When they checked he was noted to have a fever of 102. Seen at Dr. Nelson's for couple hours the day before. Received some IV fluids. Noted to have 1 g hemoglobin drop so was given some blood. In the ER he received 1 unit of packed red blood cells and he was sent home with some Levaquin, but came back to the emergency room. He said he felt better, but he was still having some confusion and seemed to be weak and puny. So, admitted with febrile illness, underlying chemotherapy. Note his blood counts, white count was a little high at 21,500, hematocrit 28, platelet count 480,000. His electrolytes, sodium 133, potassium 3.9, chloride 103, BUN 10, creatinine 0.5. The following day, white count 14,340, hematocrit 24, hemoglobin 7.6, platelet count 371,000. He remained afebrile. He was requesting to go home. Blood pressures look good and so felt we would let him go back home, let him finish out his dose p.o. of Levaquin. I did not find a source of bacterial infection. I do not know if this is inflammatory response secondary to his treatment. His renal function appeared good and appropriate. Cultures were obtained, blood cultures on the and no growth at this point. So, I wanted to know if they would want to stay another day and wait on blood cultures, but he really wants to go home, so I will allow him to go home. DISCHARGE MEDICATIONS: He will take Flomax 0.4 mg at bedtime, [place] 5 mg q.6 hours p.r.n. pain, Marinol 5 mg b.i.d., and we will continue his Levaquin which I believe he got 500 mg and he will take that once a day for another 6 days. FOLLOW UP: He is scheduled for follow up at [facility] and with Dr. Nelson next week. cc: Franko Heath MD
== END 2018-09-24 16:08 | disposition home or self-care (01) | DRG 864 ==
LOC: ED 21:12 → 3N 09-23 03:54 → SUATTDRO 09-23 03:54
PROVIDERS: ATTEND Emergency Medicine
CPT/HCPCS: 36415; 36430; 70450; 71020; 71046; 71260; 80048; 80053; 81001; 82550; 82607; 82728; 82746; 83540; 83605; 83735; 84153; 84484; 85025; 85027; 85045; 85610; 85730; 86850; 86900; 86901; 86920; 87040; 87088; 96361; 96365; 99285; A9270; G0103; J0692; J3370; J7030; J7040; J7050; P9016; Q9967; XXXXX

== ENCOUNTER 2019-05-17 07:56 | Inpatient (IN) ==
[2019-05-17 09:27] LABS: BASO# 0.03 X1000 (0.0-0.2); BASO% 0.1 % (0.0-0.8); EOS# 0.06 X1000 (0.0-0.7); EOS% 0.3 % (0.0-10.0); HEMATOCRIT 29.2 % (42.0-52.0); HEMOGLOBIN 9.2 g/dL (14.0-18.0); IMM GRAN# 0.08 X1000 (0.0-0.04); IMM GRAN% 0.4 % (0.0-0.5); LYMPH# 0.66 X1000 (1.2-3.4); MCH 29.1 PG (27-31); MCHC 31.5 g/dL (33-37); MCV 92.4 FL (81-99); MONO# 1.78 X1000 (0.11-0.59); MONO% 8.2 % (1.7-9.3); MPV 8.6 FL (7.4-10.4); NEUT# 19.21 X1000 (1.4-6.5); PLT 443 X1000 (130-400); RBC 3.16 XMIL (4.7-6.1); RDW 15.2 % (11.5-14.5); WBC 21.82 X1000 (4.8-10.8)
[2019-05-17 09:40] LABS: AGAP 12; BUN 13 mg/dL (8-22); CALCIUM 9.2 mg/dL (8.8-10.2); CHLORIDE 93 mmol/L (98-107); COSMO 258; CREATININE 0.7 mg/dL (0.7-1.2); ESTIMATED GFR > 60; GLUCOSE 115 mg/dL (70-104); POTASSIUM 4.3 mmol/L (3.5-5.1); SODIUM 128 mmol/L (136-145); TCO2 23 mmol/L (25-35)
[2019-05-17 10:24] LABS: URINE SOURCE CATH
[2019-05-17 10:45] LABS: BILIRUBIN URINE NEGATIVE (NEGATIVE); BLOOD URINE NEGATIVE (NEGATIVE); COLOR YELLOW; GLUCOSE URINE NEGATIVE (NEGATIVE); KETONE URINE NEGATIVE (NEGATIVE); LEUKOCYTES URINE NEGATIVE (NEGATIVE); NITRITE URINE NEGATIVE (NEGATIVE); PH URINE 5.5; PROTEIN URINE NEGATIVE (NEGATIVE); SP GRAVITY URINE 1.017; TURBIDITY URINE CLEAR (CLEAR); UROBILINOGEN URINE NORMAL (NORMAL)
[2019-05-17 10:47] LABS: UR EPITHELIAL CELLS <10 /HPF (<10); URINE BACTERIA NEGATIVE /HPF; URINE RBC <10 /HPF (<10); URINE WBC <10 /HPF (<10)
[2019-05-18 07:08] LABS: BASO# 0.01 X1000 (0.0-0.2); BASO% 0.1 % (0.0-0.8); HEMATOCRIT 28.8 % (42.0-52.0); HEMOGLOBIN 8.9 g/dL (14.0-18.0); IMM GRAN# 0.04 X1000 (0.0-0.04); IMM GRAN% 0.2 % (0.0-0.5); LYMPH# 1.04 X1000 (1.2-3.4); LYMPH% 6.4 % (20.5-51.1); MCHC 30.9 g/dL (33-37); MCV 93.8 FL (81-99); MONO# 0.43 X1000 (0.11-0.59); MONO% 2.6 % (1.7-9.3); MPV 8.8 FL (7.4-10.4); NEUT# 14.75 X1000 (1.4-6.5); NEUT% 90.7 % (42.2-75.2); PLT 462 X1000 (130-400); RBC 3.07 XMIL (4.7-6.1); RDW 15.2 % (11.5-14.5); WBC 16.27 X1000 (4.8-10.8)
[2019-05-18 07:24] LABS: AGAP 12; BUN 14 mg/dL (8-22); CHLORIDE 96 mmol/L (98-107); COSMO 264; CREATININE 0.7 mg/dL (0.7-1.2); ESTIMATED GFR > 60; GLUCOSE 119 mg/dL (70-104); POTASSIUM 4.9 mmol/L (3.5-5.1); SODIUM 131 mmol/L (136-145); TCO2 23 mmol/L (25-35)
[2019-05-18 07:45] LABS: LYMPHS 2 % (21-51); MONO 2 % (1-9); SEGS 96 % (42-75)
[2019-05-19 06:52] LABS: BASO# 0.03 X1000 (0.0-0.2); BASO% 0.2 % (0.0-0.8); HEMATOCRIT 27.5 % (42.0-52.0); HEMOGLOBIN 8.7 g/dL (14.0-18.0); IMM GRAN# 0.06 X1000 (0.0-0.04); IMM GRAN% 0.4 % (0.0-0.5); LYMPH# 1.06 X1000 (1.2-3.4); LYMPH% 6.4 % (20.5-51.1); MCH 29.5 PG (27-31); MCHC 31.6 g/dL (33-37); MCV 93.2 FL (81-99); MONO# 1.18 X1000 (0.11-0.59); MONO% 7.1 % (1.7-9.3); MPV 8.7 FL (7.4-10.4); NEUT# 14.29 X1000 (1.4-6.5); NEUT% 85.9 % (42.2-75.2); PLT 461 X1000 (130-400); RBC 2.95 XMIL (4.7-6.1); RDW 15.5 % (11.5-14.5); WBC 16.62 X1000 (4.8-10.8)
[2019-05-19 07:07] LABS: AGAP 12; BUN 17 mg/dL (8-22); CALCIUM 9.1 mg/dL (8.8-10.2); CHLORIDE 94 mmol/L (98-107); COSMO 263; CREATININE 0.7 mg/dL (0.7-1.2); ESTIMATED GFR > 60; GLUCOSE 109 mg/dL (70-104); POTASSIUM 3.9 mmol/L (3.5-5.1); SODIUM 130 mmol/L (136-145); TCO2 24 mmol/L (25-35)
[2019-05-19 08:05] LABS: BANDS 2 % (0-1); LYMPHS 6 % (21-51); MONO 4 % (1-9); SEGS 88 % (42-75)
[2019-05-20 07:27] LABS: HEMATOCRIT 24.2 % (42.0-52.0); HEMOGLOBIN 7.5 g/dL (14.0-18.0)
[2019-05-20 07:39] LABS: URINE SOURCE CATH
[2019-05-20 07:45] LABS: BILIRUBIN URINE NEGATIVE (NEGATIVE); BLOOD URINE NEGATIVE (NEGATIVE); COLOR YELLOW; GLUCOSE URINE NEGATIVE (NEGATIVE); KETONE URINE TRACE mg/dL (NEGATIVE); LEUKOCYTES URINE NEGATIVE (NEGATIVE); NITRITE URINE NEGATIVE (NEGATIVE); PH URINE 5.5; PROTEIN URINE NEGATIVE (NEGATIVE); SP GRAVITY URINE 1.017; TURBIDITY URINE CLEAR (CLEAR); UROBILINOGEN URINE NORMAL (NORMAL)
[2019-05-20 07:47] LABS: UR EPITHELIAL CELLS <10 /HPF (<10); URINE BACTERIA NEGATIVE /HPF; URINE RBC <10 /HPF (<10); URINE WBC <10 /HPF (<10)
[2019-05-20 22:32] LABS: HEMATOCRIT 24.1 % (42.0-52.0); HEMOGLOBIN 7.8 g/dL (14.0-18.0)
[2019-05-21 07:09] LABS: BASO# 0.02 X1000 (0.0-0.2); BASO% 0.1 % (0.0-0.8); HEMATOCRIT 23.8 % (42.0-52.0); HEMOGLOBIN 7.6 g/dL (14.0-18.0); LYMPH# 1.14 X1000 (1.2-3.4); LYMPH% 8.2 % (20.5-51.1); MCH 29.5 PG (27-31); MCHC 31.9 g/dL (33-37); MCV 92.2 FL (81-99); MONO# 0.81 X1000 (0.11-0.59); MONO% 5.8 % (1.7-9.3); MPV 8.9 FL (7.4-10.4); PLT 348 X1000 (130-400); RBC 2.58 XMIL (4.7-6.1); RDW 15.3 % (11.5-14.5); WBC 13.96 X1000 (4.8-10.8)
[2019-05-21 07:41] LABS: AGAP 12; BUN 15 mg/dL (8-22); CHLORIDE 93 mmol/L (98-107); COSMO 262; CREATININE 0.7 mg/dL (0.7-1.2); ESTIMATED GFR > 60; GLUCOSE 101 mg/dL (70-104); POTASSIUM 4.2 mmol/L (3.5-5.1); SODIUM 130 mmol/L (136-145); TCO2 25 mmol/L (25-35)
[2019-05-21 07:44] LABS: LYMPHS 8 % (21-51); MONO 4 % (1-9); SEGS 88 % (42-75)
[2019-05-22 06:48] LABS: HEMATOCRIT 22.7 % (42.0-52.0); HEMOGLOBIN 7.2 g/dL (14.0-18.0); MCH 29.1 PG (27-31); MCHC 31.7 g/dL (33-37); MCV 91.9 FL (81-99); MPV 8.6 FL (7.4-10.4); RBC 2.47 XMIL (4.7-6.1); RDW 15.3 % (11.5-14.5); WBC 13.56 X1000 (4.8-10.8)
[2019-05-22 07:07] LABS: AGAP 13; ALBUMIN 2.7 g/dL (3.5-5.0); BUN 12 mg/dL (8-22); CALCIUM 8.6 mg/dL (8.8-10.2); CHLORIDE 93 mmol/L (98-107); COSMO 262; CREATININE 0.6 mg/dL (0.7-1.2); ESTIMATED GFR > 60; GLUCOSE 95 mg/dL (70-104); PHOSPHORUS 3.3 mg/dL (2.7-4.5); POTASSIUM 3.5 mmol/L (3.5-5.1); SODIUM 131 mmol/L (136-145); TCO2 25 mmol/L (25-35)
[2019-05-22 11:57] VITALS: BP 99/52
== END 2019-05-22 14:50 | DRG 480 ==
LOC: SUPCPDRO → ED 07:56 → 4N 07:57 → SUATTDRO 07:57
PROVIDERS: ATTEND Internal Medicine

== ENCOUNTER 2019-06-15 12:23 | Inpatient (IN) ==
[2019-06-15] MEDS ORDERED: NS 1,000 ML IV ONE (12:41)
--- NOTE | 2019-06-15 13:06 | Diag Imaging Result Doc PS360 ---
EXAM: CHEST-PORTABLE 06/15/2019 HISTORY: AMS TECHNIQUE: Erect AP chest at 1254 COMMENT: There is worsening alveolar opacification of the right upper lobe with masslike characteristics compared to 05/21/2019. The heart size and pulmonary vascularity are not enlarged. The right upper lobe opacity is nearly total and abuts the minor fissure. IMPRESSION: Enlarging right upper lobe mass and/or obstructive pneumonitis. Electronically signed by Yohannes De Oliveira 06/15/2019 1:04 PM
[2019-06-15 13:24] LABS: BASO# 0.02 X1000 (0.0-0.2); BASO% 0.1 % (0.0-0.8); EOS# 0.05 X1000 (0.0-0.7); EOS% 0.2 % (0.0-10.0); HEMATOCRIT 27.2 % (42.0-52.0); HEMOGLOBIN 8.5 g/dL (14.0-18.0); IMM GRAN# 0.07 X1000 (0.0-0.04); IMM GRAN% 0.3 % (0.0-0.5); LYMPH# 1.57 X1000 (1.2-3.4); LYMPH% 7.5 % (20.5-51.1); MCH 27.9 PG (27-31); MCHC 31.3 g/dL (33-37); MCV 89.2 FL (81-99); MONO# 1.42 X1000 (0.11-0.59); MONO% 6.8 % (1.7-9.3); MPV 8.5 FL (7.4-10.4); NEUT# 17.84 X1000 (1.4-6.5); NEUT% 85.1 % (42.2-75.2); PLT 445 X1000 (130-400); RBC 3.05 XMIL (4.7-6.1); RDW 15.8 % (11.5-14.5); WBC 20.97 X1000 (4.8-10.8)
[2019-06-15 13:45] LABS: AGAP 13; ALB/GLOB RATIO 0.7; ALBUMIN 2.5 g/dL (3.5-5.0); ALKALINE PHOSPHATASE 131 U/L (32-122); BUN 12 mg/dL (8-22); CALCIUM 9.2 mg/dL (8.8-10.2); CHLORIDE 91 mmol/L (98-107); COSMO 261; CREATININE 0.6 mg/dL (0.7-1.2); ESTIMATED GFR > 60; GLUCOSE 103 mg/dL (70-104); GOT 19 U/L (10-34); GPT 15 U/L (10-44); POTASSIUM 3.9 mmol/L (3.5-5.1); SODIUM 130 mmol/L (136-145); TCO2 26 mmol/L (25-35); TOTAL BILIRUBIN 0.35 mg/dL (0.20-1.00); TOTAL PROTEIN 6.1 g/dL (6.3-8.3)
[2019-06-15 13:52] LABS: ALLEN TEST YES; BE 1.6 mmoll (-3.0-3.0); BLOOD TYPE ARTERIAL; HCO3-(ACT) 26.2 mmoll (20.0-26.0); METHB 1.4 % (0.0-1.5); MODALITY CANNULA; O2(CT) 10.8 mL/dL (15.0-23.0); PCO2(98.6) 37 mmHg (35-45); PO2(98.6) 89 mmHg (60-100); SAMPLE BLOOD; SAO2 98.8 % (95.0-100.0); pH(98.6) 7.45 (7.35-7.45)
[2019-06-15 14:02] LABS: LYMPHS 9 % (21-51); MONO 6 % (1-9); SEGS 85 % (42-75)
--- NOTE | 2019-06-15 14:05 | EKG Report ---
Test Performed on : 06/15/2019 2:01:23 PM Test Reason : AMS Blood Pressure : / mmHG Vent. Rate : 067 BPM Atrial Rate : 067 BPM P-R Int : 152 ms QRS Dur : 108 ms QT Int : 436 ms P-R-T Axes : 066 045 061 degrees QTc Int : 460 ms Sinus rhythm. with occasional premature ventricular complexes. Incomplete left bundle branch block Borderline ECG When compared with ECG of 17-MAY-2019 10:48, (Unconfirmed) premature ventricular complexes. are now present Incomplete left bundle branch block is now present Unconfirmed Result
[2019-06-15] MEDS ORDERED: VANCOMYCIN 1 GM/NS 1 GM/250 ML IVPB IV ONE (15:11)
[2019-06-15] MEDS ORDERED: MAXIPIME 1 GM in NS 50 ML IV ONE (15:11)
[2019-06-15] MEDS ORDERED: NS 1,000 ML IV SCH (15:15)
--- NOTE | 2019-06-15 15:36 | PROVIDER DOCUMENTATION ---
This chart was entered by Tamie Whalen Scribe, acting as scribe for Alden Holder MD. HPI-General Adult - General Stated Complaint: AMS Time Seen by Provider: 06/15/19 12:29 Source: patient, family (), EMS ([facility]) Allergies/Adverse Reactions: Patient Allergies Allergy/AdvReac Type Severity Reaction Status Date / Time No Known Allergies Allergy Verified 06/15/19 12:43 Home Medications: Home Medication List Medication Instructions Recorded Confirmed Last Taken Type Cyclobenzaprine [Flexeril] 0.5 tab PO HS 05/17/19 06/15/19 06/14/19 History Dronabinol 1 cap PO BID 05/17/19 06/15/19 06/14/19 History Ondansetron [Zofran] 8 mg PO TID PRN PRN 05/17/19 06/15/19 06/14/19 History Prochlorperazine [Compazine] 1 tab PO Q6-8H PRN PRN 05/17/19 06/15/19 06/14/19 History Venlafaxine E.r. [Effexor Xr] 1 cap PO DAILY 05/17/19 06/15/19 06/14/19 History Docusate Sodium [Colace] 200 mg PO QHS cap 05/22/19 06/15/19 06/14/19 Rx Ferrous Sulfate 325 mg PO DAILY tab 05/22/19 06/15/19 06/14/19 Rx Magnesium Hydroxide [Milk of 30 ml PO DAILY PRN PRN udc 05/22/19 06/15/19 06/14/19 Rx Magnesia] Oxybutynin [Ditropan] 2.5 mg PO BID #20 tab 05/22/19 06/15/19 06/14/19 Rx Oxycodone I.r. [Oxy Ir] 5 mg PO Q3H PRN PRN #20 tab 05/22/19 06/15/19 06/14/19 Rx Prednisone 40 mg PO DAILY #10 tab 05/22/19 06/15/19 06/14/19 Rx Rivaroxaban [Xarelto] 10 mg PO DAILY@0600 #35 tab 05/22/19 06/15/19 06/14/19 Rx Tamsulosin [Flomax] 0.4 mg PO BID cap 05/22/19 06/15/19 06/14/19 Rx - History of Present Illness -Gen Adult Nature of Presenting Problems: 69 yowm presents to the ed via ems for c/o possible PNA. pt is currently in a rehab facility due to rt sided hip fx. pt does have stage 3 lung cancer and has noted low O2 sat per pt. pt was seen by rehab dr donis last night and this am spoke with dr ortega (oncology) and was advised to send to ed to see if possible PNA or cancer has worsened. pt sts on exam "I really ain't got no pain" Location of Pain/Injury: reports: none Pain Radiation: reports: no radiation Quality of Pain: reports: none Severity: reports: mild Onset/Duration: reports: unsure Context/Activities at Onset: reports: light activity Modifying Factors: improves with: nothing Associated Symptoms: reports: cough (mild). denies: back/neck pain, chest pain, diarrhea, nausea, shortness of breath, vomiting Similar Symptoms Previously?: No Recently seen or treated by another doctor?: Yes (seen dr donis at rehab facility) Review of Systems - Adult - REVIEW OF SYSTEMS - ADULT Constitutional: reports: no symptoms reported. denies: chills, fever Eyes: reports: no symptoms reported Ears, Nose, Mouth & Throat: reports: no symptoms reported Cardiovascular: denies: chest pain, palpitations Respiratory: reports: see HPI, cough. denies: shortness of breath, wheezing Gastrointestinal: denies: diarrhea, nausea, vomiting Genitourinary: reports: no symptoms reported Musculoskeletal: reports: no symptoms reported Integumentary: reports: no symptoms reported Neurological: denies: dizziness/vertigo, headache/migraines Psychiatric: reports: no symptoms reported Endocrine: reports: no symptoms reported Hematologic/Lymphatic: reports: no symptoms reported Allergic/Immunologic: reports: no symptoms reported All Other Systems: Reviewed and Negative Past History - Adult - PAST MEDICAL HISTORY-ADULT Review of Records: reports: Old Records Reviewed, Nursing Assessment Review, Medications Reviewed, Social history reviewed & non-contributory. Major Childhood Illnesses: reports: denies history Cardiovascular: reports: HTN Respiratory: reports: cancer (stage 3 lung) Gastrointestinal: reports: denies history Genitourinary: reports: denies history Musculoskeletal: reports: denies history Neurological: reports: denies history Psychiatric: reports: denies history Endocrine/Immune: reports: denies history Other Conditions: reports: denies history - PRIOR SURGERIES/PROCEDURES Surgical/Procedure History: reports: hernia repair, orthopedic (extremity) - IMMUNIZATION STATUS Childhood Immunizations: See Nurse Assessment Flu Vaccine: See Nurse Assessment - FAMILY HISTORY Family History: reviewed, not pertinent - SOCIAL HISTORY Smoking: cigarettes, less than 1 pack/day Provider spent 3-5 mins advising pt. on dangers of tobacco.: Discussed manners to quit use, and f/u contacts for add'l counseling. Substance Use: denies Alcohol Use Frequency: never Living Situation: family Physical Exam-General - PHYSICAL EXAM-ADULT Initial Vital Signs Reviewed: Yes - CONSTITUTIONAL General Appearance: appears well, alert, no apparent distress (pt denies pain or issue on exam.) - EYES Eyes: PERRL/EOMI, pink conjunctivae - HEAD, EARS, NOSE, MOUTH & THROAT HENMT: moist mucous membranes - NECK Neck: non-tender, full range of motion, supple, normal inspection - RESPIRATORY Respiratory: chest non-tender, lungs clear, normal breath sounds - CARDIOVASCULAR Cardiovascular: normal peripheral pulses, regular rate, rhythm - CHEST (BREASTS) Chest/Breast: deferred - GASTROINTESTINAL (ABDOMEN) Abdominal Exam: normal bowel sounds, non tender, soft - GENITOURINARY Male Genitalia: deferred Rectal Exam: deferred Hemoccult Exam: deferred - MUSCULOSKELETAL Extremity: normal capillary refill, other (pt sts has rt hip fx and is currently in rehab) - SKIN Integumentary: normal color, normal turgor, warm/dry - NEUROLOGIC Neurologic: grossly normal - PSYCHIATRIC Psych/Mental Status: normal mood/affect, normal thought content, normal thought process, oriented x 3 Progress - PLAN OF CARE/RESULTS Result Diagrams: 06/15/19 13:06 06/15/19 13:06 - EKG 1 Time of EKG reading by physician:: 14:01 EKG Read and Signed by:: Alden Holder EKG Interpretation (*Must complete 3 of following elements*): Normal (borderline) Rate: 67 Rhythm: sinus rhythm w/ occ pvc [place]: normal QRS: PVC's CA Interval: normal ST Wave: normal - XRAY 1 XRAY: Bilateral XRAY Study: Chest Impression: See EMR Report (EXAM: CHEST-PORTABLE 06/15/2019 HISTORY: AMS T ECHNIQUE: Erect AP chest at 1254 COMMENT: There is worsening alveolar opacification of the right upper lobe with masslike characteristics compared to 05/21/2019. The heart size and pulmonary vascularity are not enlarged. The right upper lobe opacity is nearly total and abuts the minor fissure. IMPRESSION: Enlarging right upper lobe mass and/or obstructive pneumonitis. Electronically signed by Yoahnnes De Oliveira 06/15/2019 1:04 PM 06/15/19 1304 Interpreting Physician: Yohannes De Oliveira MD Dictated Date/Time: 06/15/19 1303 cc: Alden Holder MD; None,PCP) - CONSULTS/PCP/HOSPITALIST Notification #1 *Consult/PCP/Hospitalist*: hospitalist Time Discussed: 15:19 (spoke with hanna) Consult Disposition: Admit Departure - Departure Date of Disposition Decision: 06/15/19 Time of Disposition Decision: 15:35 DIAGNOSIS: Lung cancer Right upper lobe pneumonia Qualifiers: Pneumonia type: due to unspecified organism Qualified Code(s): J18.1 - Lobar pneumonia, unspecified organism Disposition: ADMITTED INPATIENT 09 Certified Medical Emergency: Emergent Condition: Good Referrals and Follow-Ups: None,PCP [Primary Care Provider] - Discharge Education: Steps to Quit Smoking, [id number] - Critical Care Note This patient required my direct & personal management of CC.: No Attestation - Physician/ GRETCHEN Attestation Patient care was provided by Advanced Practice Provider:: No The physician spent face to face time with patient:: Yes Advanced Practice Provider documentation review:: Supervising physician onsite and consulted in the evaluation and care of this patient. The physician did have a face to face encounter with the patient. This chart was documented by the indicated scribe, (Tamie Whalen Scribe) and accurately reflects the services I performed and decisions made by me, Alden Holder MD, as attested by the provider's signature.
[2019-06-15] MEDS ORDERED: TYLENOL PO PRN (16:24)
[2019-06-15] MEDS ORDERED: MILK OF MAGNESIA PO PRN (16:24)
[2019-06-15] MEDS ORDERED: ZOFRAN IV PRN (16:24)
[2019-06-15] MEDS ORDERED: COMPAZINE PO PRN (16:24)
--- NOTE | 2019-06-15 16:42 | HISTORY AND PHYSICAL ---
HISTORY OF PRESENT ILLNESS: I believe he was sent over here from rehab. He had recently broken his right hip. In April, he was diagnosed with stage III cancer in the right lung, I believe in the right upper lung, and then the next day, he fell and broke his right hip. So, he has not undergone any therapy. Dr. Nelson is his oncologist. He was doing pretty good at rehab. The last couple of days though, he has had a little more lethargy and more pain in the right chest. They were thinking about a fentanyl patch, but it seemed to drop his blood pressure a little too much. PAST MEDICAL HISTORY: He was found to have non-small cell carcinoma of the lung. He has benign prostatic hypertrophy. ALLERGIES: No known drug allergies. SOCIAL HISTORY: He lives in [place]. He was a community ambulator. Diagnosed with non-small cell cancer in February. He was planning on immunotherapy. His scan showed enlargement of the tumor, so Dr. Nelson was planning on what his next therapy was going to be. FAMILY HISTORY: Did not report in past history or at this time any issues with family medical history. REVIEW OF SYSTEMS: General: I think his weight has been fairly stable. Appetite has not been real good. HEENT: No change in visual or hearing acuity. Respiratory: No increased work of breathing or dyspnea. Really no pleuritic pain, just an aching, nagging pain in his right upper chest. Cardiovascular: No chest pain or tachy palpitation. Gastrointestinal/Genitourinary: Unremarkable. Musculoskeletal/Neurologic: No significant complaints Endocrinologic/hemologic: No significant history. No pedal edema. Skin: Warm and dry. No rashes. Oral and nasal mucosa without lesions. Neck: Without any adenopathy or thyromegaly. ASSESSMENT AND PLAN: 1. Chest x-ray, we see a mass, but questionable postobstructive pneumonitis. So, we are going to treat him. I will treat him with ceftriaxone at this time. We will get a sputum culture. We will put him on some DuoNeb and see if that will help. 2. Stage III non-small cell lung cancer. Dr. Nelson is following along. 3. As far as treatment for pain, I think at this time, we will try some OxyIR. We will give him 5 mg and he can have 1-2 q.4 hours and see how that does. We will give him some supplementary O2. 4. He has had trouble with constipation, so we will continue his Colace. 5. He is on iron. We will continue that. We will put him on a proton pump inhibitor. We can just use Nexium 40 mg daily. 6. He was put on Effexor XR and we will continue that as well. 7. He has a history of benign prostatic hypertrophy. It appears that he is on high-dose Flomax and will continue 0.4 mg b.i.d. Given normal saline, I guess we will run it at 85 mL an hour. Put him on a regular diet. Looking back, I do not know that I see an echocardiogram, but he has no history of congestive heart failure. cc: Franko Heath MD
[2019-06-15] MEDS: ROCEPHIN 1 GM in NS 50 ML IV SCH (18:56)
[2019-06-15] MEDS: NS 1,000 ML IV SCH (18:56)
[2019-06-15] MEDS: DUONEB (A & A) INH SCH ×2 (19:41→23:30)
[2019-06-15] MEDS: FLEXERIL PO SCH (20:37)
[2019-06-15] MEDS: FLOMAX PO SCH (20:37)
[2019-06-15] MEDS: MARINOL PO SCH (20:37)
[2019-06-15] MEDS: COLACE PO SCH (20:37)
[2019-06-15] MEDS: DITROPAN PO SCH (20:37)
[2019-06-16] MEDS: OXY IR PO PRN ×2 (01:31→10:16)
[2019-06-16] MEDS: DUONEB (A & A) INH SCH ×6 (03:19→23:25)
[2019-06-16] MEDS: NS 1,000 ML IV SCH ×2 (05:24→18:00)
[2019-06-16] MEDS: XARELTO PO SCH (05:24)
[2019-06-16 07:32] LABS: BASO# 0.01 X1000 (0.0-0.2); BASO% 0.1 % (0.0-0.8); EOS# 0.08 X1000 (0.0-0.7); EOS% 0.5 % (0.0-10.0); HEMATOCRIT 24.4 % (42.0-52.0); HEMOGLOBIN 7.5 g/dL (14.0-18.0); IMM GRAN# 0.05 X1000 (0.0-0.04); IMM GRAN% 0.3 % (0.0-0.5); LYMPH# 1.34 X1000 (1.2-3.4); LYMPH% 7.9 % (20.5-51.1); MCH 27.7 PG (27-31); MCHC 30.7 g/dL (33-37); MONO# 1.17 X1000 (0.11-0.59); MONO% 6.9 % (1.7-9.3); MPV 8.7 FL (7.4-10.4); NEUT# 14.31 X1000 (1.4-6.5); NEUT% 84.3 % (42.2-75.2); PLT 438 X1000 (130-400); RBC 2.71 XMIL (4.7-6.1); RDW 15.6 % (11.5-14.5); WBC 16.96 X1000 (4.8-10.8)
[2019-06-16 07:53] LABS: AGAP 16; BUN 11 mg/dL (8-22); CALCIUM 8.1 mg/dL (8.8-10.2); CHLORIDE 94 mmol/L (98-107); COSMO 262; CREATININE 0.6 mg/dL (0.7-1.2); ESTIMATED GFR > 60; GLUCOSE 101 mg/dL (70-104); POTASSIUM 3.9 mmol/L (3.5-5.1); SODIUM 131 mmol/L (136-145); TCO2 21 mmol/L (25-35)
[2019-06-16] MEDS: MARINOL PO SCH ×2 (10:09→20:11)
[2019-06-16] MEDS: PREDNISONE PO SCH (10:09)
[2019-06-16] MEDS: EFFEXOR XR PO SCH (10:09)
[2019-06-16] MEDS: FLOMAX PO SCH ×2 (10:09→20:11)
[2019-06-16] MEDS: DITROPAN PO SCH ×2 (10:09→20:11)
[2019-06-16] MEDS: FERROUS SULFATE PO SCH (10:09)
[2019-06-16] MEDS: NEXIUM PO SCH (10:10)
--- NOTE | 2019-06-16 11:51 | PROGRESS NOTE ---
DATE: 06/16/2019 SUBJECTIVE: Mr. Somers feels about the same. He is still having pretty good pain in the right chest. He remains afebrile. OBJECTIVE: Vital signs: Temperature is 98.1 degrees, pulse 70, respirations 18, blood pressure 108. HEENT: Pupils are equal and round. Lungs: clear in all lung chambers. Cardiovascular: Regular rhythm and rate without murmur or S3. Abdomen: Soft. Skin: Warm and dry. Urine output: 1000 mL. ASSESSMENT AND PLAN: 1. Chest x-ray with mass. He has stage III non-small cell lung cancer and treating him for possible postobstructive pneumonitis. Continue present antibiotics. 2. Right chest pain. I will try and titrate up his medicine. He is on OxyIR right now. 3. He has had trouble with constipation. He is on Colace. 4. Continue his iron supplement and he is on Nexium. REVIEW OF HIS ORDERS: He is on Colace 200 mg at bedtime, oxycodone IR 5 mg p.o. q.3 hours p.r.n., Flexeril 5 mg at bedtime, Marinol 2.5 mg b.i.d., Nexium 40 mg a day, ferrous sulfate 325 mg a day, normal saline at 85 mL an hour, Ditropan 2.5 mg b.i.d., prednisone 40 mg daily, Xarelto 10 mg daily, ceftriaxone 1 g IV q.24 hours, Flomax 0.4 mg b.i.d., Effexor 75 mg p.o. daily. His blood cultures are pending. LABORATORY DATA: From this morning, white count down to 16,000 from 20,000, hematocrit 24, hemoglobin 7.5, sodium 131, potassium 3.9, chloride 94, BUN 11, creatinine . cc: MD JAUN Costa
[2019-06-16] MEDS: ROCEPHIN 1 GM in NS 50 ML IV SCH (18:00)
[2019-06-16] MEDS: FLEXERIL PO SCH (20:11)
[2019-06-16] MEDS: COLACE PO SCH (20:12)
[2019-06-17] MEDS: DUONEB (A & A) INH SCH ×6 (03:32→23:05)
[2019-06-17] MEDS: NEXIUM PO SCH (06:03)
[2019-06-17] MEDS: NS 1,000 ML IV SCH ×2 (06:03→17:19)
[2019-06-17] MEDS: XARELTO PO SCH (06:03)
--- NOTE | 2019-06-17 07:16 | PROGRESS NOTE ---
DATE: 06/17/2019 SUBJECTIVE: Mr. Somers said he slept a little better last night. Breathing is comfortable. His right-sided anterior chest pain is a little less, but still there. OBJECTIVE: Vital Signs: Temperature 98.2 degrees, pulse 60, respirations 12, blood pressure 110/57. HEENT: Pupils are equal and round. Lungs: Clear in all lung chambers. Cardiovascular: Regular rhythm and rate without murmur or S3. Abdomen: Soft. Skin: Warm and dry. Urine output is 900 mL. ASSESSMENT AND PLAN: 1. Chest x-ray with mass. He has stage III non-small cell lung cancer. Treating him for probable postobstructive pneumonitis. Continue present antibiotics. He is on ceftriaxone 1 gram intravenously every 24 hours. 2. Anemia. Hematocrit is 27, hemoglobin 7.5, MCV is 90. We are giving him some iron. His lab was checked for B12 and folate. Electrolytes this morning show sodium 131, potassium 3.9, chloride 94, BUN 11, creatinine 0.6, so we will make sure we get B12 and folate and check that. 3. History of constipation. He is on Colace. Said he had a bowel movement. I put milk of magnesia on there if he needs it. 4. Continue his gastrointestinal prophylaxis with Nexium. REVIEW OF MEDICATIONS: He is on Colace 200 mg at bedtime, Oxy IR 5 mg every 3 hours p.r.n., Flexeril 5 mg at bedtime, Marinol 2.5 mg b.i.d., Nexium 40 mg daily, ferrous sulfate 325 mg daily, prednisone 40 mg a day, Xarelto 10 mg daily, ceftriaxone 1 gram every 24 hours, Flomax 0.4 mg b.i.d., and Effexor ER 75 mg a day. cc: Franko Heath MD
[2019-06-17] MEDS: MARINOL PO SCH ×2 (08:05→21:29)
[2019-06-17] MEDS: FLOMAX PO SCH ×2 (08:05→21:11)
[2019-06-17] MEDS: FERROUS SULFATE PO SCH (08:06)
[2019-06-17] MEDS: OXY IR PO PRN (08:06)
[2019-06-17] MEDS: PREDNISONE PO SCH (08:06)
[2019-06-17] MEDS: DITROPAN PO SCH ×2 (08:06→21:11)
[2019-06-17] MEDS: EFFEXOR XR PO SCH (08:06)
[2019-06-17] MEDS: ROCEPHIN 1 GM in NS 50 ML IV SCH (17:19)
[2019-06-17] MEDS: COLACE PO SCH (21:11)
[2019-06-17] MEDS: FLEXERIL PO SCH (21:11)
[2019-06-18] MEDS: OXY IR PO PRN ×3 (02:26→20:17)
[2019-06-18] MEDS: DUONEB (A & A) INH SCH ×6 (03:21→22:30)
[2019-06-18] MEDS: NS 1,000 ML IV SCH ×2 (04:40→19:23)
[2019-06-18] MEDS: NEXIUM PO SCH (06:01)
[2019-06-18] MEDS: XARELTO PO SCH (06:01)
[2019-06-18 07:34] LABS: BASO# 0.01 X1000 (0.0-0.2); BASO% 0.1 % (0.0-0.8); EOS# 0.04 X1000 (0.0-0.7); EOS% 0.3 % (0.0-10.0); HEMATOCRIT 26.1 % (42.0-52.0); IMM GRAN# 0.04 X1000 (0.0-0.04); IMM GRAN% 0.3 % (0.0-0.5); LYMPH# 1.21 X1000 (1.2-3.4); LYMPH% 8.2 % (20.5-51.1); MCH 27.6 PG (27-31); MCHC 30.7 g/dL (33-37); MONO% 7.5 % (1.7-9.3); MPV 8.8 FL (7.4-10.4); NEUT# 12.28 X1000 (1.4-6.5); NEUT% 83.6 % (42.2-75.2); PLT 479 X1000 (130-400); RDW 15.7 % (11.5-14.5); WBC 14.68 X1000 (4.8-10.8)
[2019-06-18 07:58] LABS: IRON SATURATION 29 %; TIBC 78 ug/dL; TOTAL IRON 23 ug/dL (53-167); UNBOUND IRON 55 ug/dL (112-346)
--- NOTE | 2019-06-18 08:41 | PROGRESS NOTE ---
DATE: 06/18/2019 SUBJECTIVE: Mr. Somers says he feels a little bit better, still has the pain in his right chest that radiates to his right shoulder blade, but he feels like he is breathing okay. His appetite is not real good, but he is eating a little bit. OBJECTIVE: Vital Signs: Temperature 97.7 degrees, pulse 70, respirations 16, blood pressure 120/60. HEENT: Pupils are equal and round. Lungs: Clear in all lung chambers. Cardiovascular: Regular rhythm and rate without murmur or S3. Abdomen: Soft. Skin: Warm and dry. ASSESSMENT AND PLAN: 1. Stage III non-small cell lung cancer and treating for probable postobstructive pneumonitis. He is on ceftriaxone. He seems to be improving clinically. We will wait to see what Oncology wants to do as far as plans. I think he could be ready go back to rehab tomorrow if they are okay with that. 2. Anemia. Hematocrit is stable at about 27, hemoglobin 7.5. He is on some iron, and checking his lab. His folate was 7.2. Will start him on some Colace. 3. Constipation. He is doing pretty well with that. He has got Colace. Continue his bowel regimen. We will continue current treatment. He is on Marinol 2.5 mg twice daily, he is on Oxy IR 5 mg every 3 hours as needed for pain, Colace 200 mg at bedtime, ferrous sulfate 325 mg a day, normal saline at 85 mL an hour, Ditropan 2.5 mg by mouth twice daily, prednisone 40 mg a day, Xarelto 10 mg daily, Flomax 0.4 mg by mouth twice daily, and Effexor ER 75 mg daily. cc: Franko Heath MD
[2019-06-18 08:53] LABS: FERRITIN 3178 ng/mL (30-400)
--- NOTE | 2019-06-18 10:17 | Diag Imaging Result Doc PS360 ---
CHEST-2 VIEWS - 06/18/2019 INDICATION: postobstructive pneumonia COMPARISON: 06/15/2019 FINDINGS: There is stable complete opacification of the right upper lobe. There is some hazy infiltrate or atelectasis in the right lower lobe which has worsened since prior. The left lung remains clear. No mediastinal shift. Heart size remains normal. IMPRESSION: Slight worsening infiltrate or atelectasis in the right lower lobe. Electronically signed by Cory Weaver 06/18/2019 10:15 AM
[2019-06-18] MEDS: FERROUS SULFATE PO SCH (10:31)
[2019-06-18] MEDS: FLOMAX PO SCH ×2 (10:31→20:16)
[2019-06-18] MEDS: DITROPAN PO SCH ×2 (10:31→20:16)
[2019-06-18] MEDS: EFFEXOR XR PO SCH (10:32)
[2019-06-18] MEDS: PREDNISONE PO SCH (10:32)
[2019-06-18] MEDS: MARINOL PO SCH ×2 (10:33→20:16)
[2019-06-18] MEDS: FOLIC ACID PO SCH (10:34)
[2019-06-18] MEDS: ROCEPHIN 1 GM in NS 50 ML IV SCH (19:24)
[2019-06-18] MEDS: COLACE PO SCH (20:16)
[2019-06-18] MEDS: FLEXERIL PO SCH (20:17)
[2019-06-19] MEDS: NS 1,000 ML IV SCH ×3 (04:30→15:37)
[2019-06-19] MEDS: DUONEB (A & A) INH SCH ×6 (04:43→23:17)
[2019-06-19] MEDS: XARELTO PO SCH (06:13)
[2019-06-19] MEDS: NEXIUM PO SCH (06:13)
[2019-06-19] MEDS: OXY IR PO PRN ×2 (06:16→11:09)
[2019-06-19] MEDS: DITROPAN PO SCH ×2 (11:11→20:46)
[2019-06-19] MEDS: FOLIC ACID PO SCH (11:13)
[2019-06-19] MEDS: FERROUS SULFATE PO SCH (11:13)
[2019-06-19] MEDS: MARINOL PO SCH ×2 (11:13→20:45)
[2019-06-19] MEDS: EFFEXOR XR PO SCH (11:14)
[2019-06-19] MEDS: FLOMAX PO SCH ×2 (11:14→20:46)
[2019-06-19] MEDS: PREDNISONE PO SCH (11:14)
--- NOTE | 2019-06-19 16:02 | PROGRESS NOTE ---
DATE: 06/19/2019 SUBJECTIVE: Today, Mr. Somers refers to be doing fair. Still remarkably weak. was not at the bedside but I was able to talk to her on the phone. Mr. Somers' tells me that Mr. Somers was brought in mainly because his pain was not under control. He was having some difficulty breathing and his blood pressures were low, so the rehab could not deal with that. Documentation revealed that on the day of admission, his blood pressure went down to about 90/67 at some point. For the past 24 to 48 hours, though it has been fairly stable. OBJECTIVELY: Vital Signs: Current vitals, blood pressure is 124/75, pulse of 100, respirations 20, temperature 98.2 degrees. General: Mr. Somers is a 69-year-old gentleman. He is in bed. He looks remarkably undernourished. HEENT: Mucosa is pink and moist. Anicteric. Acyanotic. Neck: Supple. Chest: Air entry is bilaterally reduced, more so to the left lung chambers. No crackles. Cardiovascular: Regular rate and rhythm. Abdomen: Soft. Extremities: No pedal edema. Central Nervous System: The patient is awake, alert, very feeble, but follows basic commands. LABORATORY DATA: None for today. The patient's folate was about 7.2 on the last time. ASSESSMENT: 1. 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 2. Hypoxemia on admission secondary to lung cancer with postobstructive pneumonitis. 3. Chronic hyponatremia. 4. Status post left hip fracture repair on previous admission. 5. Anemia of chronic disease. 6. Constipation, improved. 7. Generalized weakness and deconditioning, most likely due to the underlying malignancy. 8. Poor performance status. 9. Folate deficiency. Patient is getting replacement. cc: Roger Shaffer MD
[2019-06-19] MEDS: ROCEPHIN 1 GM in NS 50 ML IV SCH (18:54)
[2019-06-19] MEDS: FLEXERIL PO SCH (20:46)
[2019-06-19] MEDS: COLACE PO SCH (20:46)
[2019-06-20] MEDS: DUONEB (A & A) INH SCH ×6 (03:39→22:54)
[2019-06-20] MEDS: NS 1,000 ML IV SCH (03:48)
[2019-06-20] MEDS: NEXIUM PO SCH (06:41)
[2019-06-20] MEDS: XARELTO PO SCH (06:41)
[2019-06-20 07:30] LABS: HEMATOCRIT 26.3 % (42.0-52.0); HEMOGLOBIN 8.1 g/dL (14.0-18.0); MCH 27.8 PG (27-31); MCHC 30.8 g/dL (33-37); MCV 90.4 FL (81-99); MPV 8.8 FL (7.4-10.4); RBC 2.91 XMIL (4.7-6.1); RDW 15.7 % (11.5-14.5); WBC 17.42 X1000 (4.8-10.8)
[2019-06-20 08:12] LABS: AGAP 13; ALBUMIN 2.1 g/dL (3.5-5.0); BUN 8 mg/dL (8-22); CALCIUM 8.4 mg/dL (8.8-10.2); CHLORIDE 97 mmol/L (98-107); COSMO 261; CREATININE 0.5 mg/dL (0.7-1.2); ESTIMATED GFR > 60; GLUCOSE 92 mg/dL (70-104); PHOSPHORUS 2.6 mg/dL (2.7-4.5); POTASSIUM 3.6 mmol/L (3.5-5.1); SODIUM 131 mmol/L (136-145); TCO2 21 mmol/L (25-35)
[2019-06-20] MEDS ORDERED: SAMSCA PO ONE (09:08)
[2019-06-20] MEDS: EFFEXOR XR PO SCH (09:40)
[2019-06-20] MEDS: DITROPAN PO SCH ×2 (09:41→20:15)
[2019-06-20] MEDS: FERROUS SULFATE PO SCH (09:41)
[2019-06-20] MEDS: FLOMAX PO SCH ×2 (09:42→20:16)
[2019-06-20] MEDS: OXY IR PO PRN ×2 (09:42→23:59)
[2019-06-20] MEDS: MARINOL PO SCH ×2 (09:42→20:15)
[2019-06-20] MEDS: PREDNISONE PO SCH (09:42)
[2019-06-20] MEDS: FOLIC ACID PO SCH (10:03)
--- NOTE | 2019-06-20 11:44 | PROGRESS NOTE ---
DATE: 06/20/2019 SUBJECTIVE: This morning, Mr. Somers refers to be doing fairly okay. No new complaints. The and the son had just came in at the time of the encounter. OBJECTIVE: Vital Signs: Blood pressure is 139/72, pulse of 72, respirations 18, temperature 98.3 degrees, the patient was saturating 96% to 100% on room air. General: Mr. Somers is a 69-year- old gentleman. He was in bed. Does not seems to be in any cardiopulmonary distress. HEENT: Mucosa is pink and moist. Anicteric and acyanotic. Neck: Supple. Chest: Air entry is bilaterally reduced. No rhonchi. Cardiovascular: Regular rate and rhythm. No murmurs, no rubs, no gallops. GI: Abdomen was soft, nontender. Bowel sounds present. Extremities: No pedal edema. Distal pulses present. VEHICLE BODY SANDER: The patient is awake, alert, oriented. There is no focal neurologic deficit. LABORATORY DATA: So far, blood cultures have been 48 hours negative. WBC 17.42, hemoglobin is 8.1, platelet count of 457,000. Chemistry is also reviewed. Sodium is 131. Rest of chemistry is unremarkable. Phosphorus is 2.6. Albumin of 2.1. IMAGING: No new imaging studies. MEDICATIONS: The patient's current medications have all been reviewed. ASSESSMENT: 1. Stage III poorly-differentiated adenocarcinoma of the left upper lobe. The patient follows up with Dr. Nelson. 2. Acute hypoxemic respiratory failure on presentation, improved. The patient is currently off any supplemental oxygen. 3. Suspected postobstructive pneumonitis. The patient is on antimicrobial coverage. 4. Chronic hyponatremia. The patient has been given a dose of Samsca today. We will re-evaluate his sodium level in the morning. 5. Anemia of chronic disease. Hemoglobin and hematocrit are stable. 6. Generalized weakness and deconditioning, presumably due to the underlying malignancy and mineral and vitamin deficiencies. 7. Folate deficiency. Will continue replacement. 8. Protein calorie malnutrition. The patient is on supplements. 9. Constipation, improved. 10. Status post left hip fracture repair on previous admission. Noted. In general, I think Mr. Somers is doing a lot better. Oxygenation has significantly improved. We are going to continue with the current antimicrobial coverage. He was evaluated by Physical Therapy yesterday. Pending possible discharge to rehab tomorrow. cc: Roger Shaffer MD
[2019-06-20] MEDS: ROCEPHIN 1 GM in NS 50 ML IV SCH (18:29)
[2019-06-20] MEDS: COLACE PO SCH (20:14)
[2019-06-20] MEDS: FLEXERIL PO SCH (20:15)
[2019-06-21] MEDS: DUONEB (A & A) INH SCH ×6 (04:26→23:02)
[2019-06-21] MEDS: XARELTO PO SCH (05:32)
[2019-06-21] MEDS: NEXIUM PO SCH ×2 (05:32→06:32)
[2019-06-21 07:16] LABS: HEMATOCRIT 27.8 % (42.0-52.0); HEMOGLOBIN 8.7 g/dL (14.0-18.0); MCH 28.6 PG (27-31); MCHC 31.3 g/dL (33-37); MCV 91.4 FL (81-99); MPV 8.8 FL (7.4-10.4); RBC 3.04 XMIL (4.7-6.1); RDW 16.1 % (11.5-14.5); WBC 16.31 X1000 (4.8-10.8)
[2019-06-21 07:38] LABS: AGAP 13; ALBUMIN 2.6 g/dL (3.5-5.0); BUN 7 mg/dL (8-22); CALCIUM 8.7 mg/dL (8.8-10.2); CHLORIDE 99 mmol/L (98-107); COSMO 272; CREATININE 0.6 mg/dL (0.7-1.2); ESTIMATED GFR > 60; GLUCOSE 99 mg/dL (70-104); PHOSPHORUS 2.4 mg/dL (2.7-4.5); POTASSIUM 3.2 mmol/L (3.5-5.1); SODIUM 137 mmol/L (136-145); TCO2 25 mmol/L (25-35)
[2019-06-21] MEDS: OXY IR PO PRN (09:26)
[2019-06-21] MEDS: DITROPAN PO SCH ×2 (09:27→22:00)
[2019-06-21] MEDS: FLOMAX PO SCH ×2 (09:27→22:00)
[2019-06-21] MEDS: FERROUS SULFATE PO SCH (09:28)
[2019-06-21] MEDS: FOLIC ACID PO SCH (09:28)
[2019-06-21] MEDS: PREDNISONE PO SCH (09:28)
[2019-06-21] MEDS: EFFEXOR XR PO SCH (09:28)
[2019-06-21] MEDS: MARINOL PO SCH ×2 (09:28→22:00)
--- NOTE | 2019-06-21 14:36 | PROGRESS NOTE ---
DATE: 06/21/2019 SUBJECTIVE: This morning, Mr. Somers was sitting up in a chair and the was also sitting at the bedside with him. OBJECTIVE: Vital signs: Blood pressure is 102/62, pulse of 90, respiration is 19, temperature is 97.6 degrees. General: Mr. Somers is a 69-year-old gentleman. He was sitting up in the chair, did not seem to be in any distress. He was not wearing any oxygen. HEENT: Mucosa is pink and moist. Anicteric. Acyanotic. Neck: Supple. Chest: Air entry was bilaterally reduced, more so to the left hemithorax. Cardiovascular: Regular rate and rhythm. No murmurs, no rubs, no gallops. Gastrointestinal: Abdomen was soft, nontender. Bowel sounds present. Extremities: No pedal edema. Distal pulses present. Central nervous system: Patient is awake, alert, and oriented. There is no focal deficit. LABORATORY DATA: WBC is down to 16.31. Rest of CBC is unremarkable. Chemistry shows sodium is normalized to 137, potassium is 2.3. Phosphorus is 2.4. So far, blood cultures have been 5 days negative. ASSESSMENT: 1. Acute hypoxemic respiratory failure on presentation, resolved. 2. Suspected postobstructive pneumonitis. Patient was on ceftriaxone for 5 days. This has been switched to p.o. Augmentin to complete a total of 10 days. 3. 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 Imaging studies on this admission seem to suggest that the disease is progressing. 4. 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 5. Anemia of chronic disease. Hemoglobin and hematocrit is stable. 6. Generalized weakness and deconditioning due to underlying malignancy and mineral as well as vitamin deficiencies. 7. Folate deficiency is being replaced. 8. Protein calorie malnutrition. Patient is on supplementation. 9. Constipation, improved. 10. Status post left hip fracture repair on recent admission. DISPOSITION: Mr. Somers is from [facility] [place]. He was doing rehab over there for his hip fracture. I understand there has to be a risk stratification before he goes back, so we are waiting for that to be done and hopefully get him there. He is clinically stable. We are going to switch his IV antibiotics to p.o. Augmentin. cc: Roger Shaffer MD
[2019-06-21] MEDS: FLEXERIL PO SCH (21:58)
[2019-06-21] MEDS: COLACE PO SCH (22:00)
[2019-06-21] MEDS: AUGMENTIN PO SCH (22:01)
[2019-06-22] MEDS: DUONEB (A & A) INH SCH ×4 (03:25→16:37)
[2019-06-22] MEDS: XARELTO PO SCH (06:12)
[2019-06-22] MEDS: NEXIUM PO SCH (06:12)
[2019-06-22] MEDS: OXY IR PO PRN (06:12)
[2019-06-22] MEDS ORDERED: PREDNISONE PO SCH (09:00)
[2019-06-22] MEDS: FERROUS SULFATE PO SCH (09:24)
[2019-06-22] MEDS: EFFEXOR XR PO SCH (09:25)
[2019-06-22] MEDS: AUGMENTIN PO SCH (09:25)
[2019-06-22] MEDS: FOLIC ACID PO SCH (09:25)
[2019-06-22] MEDS: MARINOL PO SCH (09:25)
[2019-06-22] MEDS: DITROPAN PO SCH (09:25)
[2019-06-22] MEDS: FLOMAX PO SCH (09:25)
--- NOTE | 2019-06-22 10:06 | HEMO/ONC CONSULTATION ---
DATE: 06/22/2019 ADMITTING PHYSICIAN: Dr. Franko Heath REQUESTING PHYSICIAN: Dr. Franko Heath We appreciate this consult. CHIEF COMPLAINT: Non-small cell lung cancer. HISTORY OF PRESENT ILLNESS: Mr. Kvng Somers is a 69-year-old male well known to Dr. Nelson with a history of non-small cell lung cancer. The patient had recent progression on Opdivo. He is currently status post cycle 1 of Alimta and bevacizumab on 06/12/2019. The patient presented to [facility] from rehabilitation with complaints of lethargy and right chest pain as well as hypotension. The patient was in rehabilitation secondary to right hip fracture. Upon presentation to [facility], the patient underwent chest x-ray which revealed a known mass as well as postobstructive pneumonitis. The patient was admitted for treatment. We are consulted as the patient is well known to us. PAST MEDICAL HISTORY: 1. Non-small cell lung cancer. 2. BPH. PAST SURGICAL HISTORY: None. SOCIAL HISTORY: Negative for tobacco, alcohol or illicit drugs. FAMILY HISTORY: Negative for hematologic or oncologic disease. MEDICATIONS ON ADMISSION: 1. Compazine. 2. Cyclobenzaprine. 3. Effexor XR. 4. Folic acid. 5. Marinol. 6. [place]. 7. Omeprazole. 8. Phospho 250 neutral. 9. Ritalin. 10. Zofran. ALLERGIES: Carboplatin. REVIEW OF SYSTEMS: A 14 point review of systems was obtained and is negative except for mentioned in HPI. PHYSICAL EXAMINATION: General: Mr. Somers is a pleasant 69-year-old male lying supine in bed in no immediate distress. Vital Signs: Temperature 97.7 degrees, blood pressure 120/60, heart rate 71, respirations 16, O2 saturation 92% on room air. HEENT: Normocephalic, atraumatic. Mucous membranes are pale and moist. Sclerae anicteric. Extraocular movements intact. Neck: Supple. Lungs: Clear to auscultation bilaterally. Chest expansion equal bilaterally. Cardiovascular: S1, S2 is heard. No murmurs, rubs or gallops. Abdomen: Nondistended. Extremities: No clubbing, cyanosis, or edema. Dermatologic: No rashes, bruises or lesions. Neurologic: The patient is awake, alert, and oriented x3. Has no focal deficit. LABORATORY DATA: Hemoglobin 8.0, hematocrit 26.1, white blood cell count 14.68, platelets 479,000. Iron saturation 29%, ferritin 3178, B12 1150, folate 7.2, blood cultures reveal no growth at 48 hours. IMAGING STUDIES: Chest x-ray reveals enlarging right upper lobe mass as well as obstructive pneumonitis. ASSESSMENT AND PLAN: 1. Non-small cell lung cancer. The patient has had recent progression of disease on Opdivo. He is status post cycle 1 of Alimta and bevacizumab on 06/12/2019. 2. Obstructive pneumonitis versus pneumonia, more likely pneumonia. The patient will continue antibiotics as ordered. Additionally, he is currently on prednisone. 3. Right hip fracture. The patient will be discharged to rehabilitation. He is currently undergoing physical therapy. 4. Deconditioning. Again, the patient is currently undergoing physical therapy and will be discharged to rehabilitation. 5. We will follow along with you and make further recommendations pending outcomes. The above reflects the history, exam, assessment, and plan of Dr. Nelson. Dictated by JOEL Corona for Valentin Nelson MD cc: JOEL Corona MD
--- NOTE | 2019-06-22 12:21 | DISCHARGE SUMMARY ---
ADMISSION DATE: 06/15/2019 DISCHARGE DATE: 06/22/2019 DISPOSITION: Back to [facility] rehab. CONSULTATION DURING THIS ADMISSION: Heme-Onc was consulted. Patient was seen by Dr. Nelson. INVASIVE PROCEDURES DONE DURING THIS ADMISSION: None. IMAGING STUDIES OF SIGNIFICANCE: Chest x-rays did show an enlarging right upper lobe mass and/or obstructive pneumonitis. A repeat x-ray shows slight worsening infiltrate or atelectasis in the right lower lobe MICROBIOLOGY DATA: Blood culture 5 days negative. ADMISSION DIAGNOSES: 1. Postobstructive pneumonitis. 2. Stage III non-small cell lung cancer. 3. Constipation. DIAGNOSES AT THE TIME OF DISCHARGE: 1. Acute hypoxemic respiratory failure on presentation, improved. 2. Post obstructive pneumonitis. 3. Stage III poorly differentiated adenocarcinoma of the right upper lobe. 4. Chronic hyponatremia secondary to syndrome of inappropriate antidiuretic hormone secretion, improved during the hospital course. 5. Anemia of chronic disease. 6. Generalized weakness and deconditioning. 7. Folate deficiency. 8. Protein calorie malnutrition. 9. Constipation, improved. 10. Status post right hip fracture repair on recent admission. DISCHARGE MEDICATIONS: 1. Effexor XR 75 mg p.o. daily. 2. Flexeril 0.5 p.o. at bedtime. 3. Dronabinol 2.5 p.o. b.i.d. 4. Oxybutynin 2.5 b.i.d. 5. Tamsulosin 0.4 p.o. b.i.d. 6. Milk of magnesia p.r.n. 7. Rivaroxaban 10 mg p.o. daily. 8. Colace 200 p.o. at bedtime. 9. Ferrous sulfate 325 p.o. daily. 10. Amoxyclav 875 p.o. b.i.d. 11. Folic acid 1 mg daily. 12. Oxy IR 5 mg p.o. q.3 p.r.n. PRESENTING COMPLAINT: Shortness of breath. HISTORY OF PRESENT COMPLAINT: Mr. Somers is a 69-year-old gentleman who is known to have advanced left upper lobe adenocarcinoma, currently in rehab because of a fracture to the right hip. Came in this time because he was having difficulty breathing. Upon presentation, he was evaluated, found to be slightly hypoxemic on occasions with O2 saturation in the 93%, 92% sometimes. He was started on supplemental oxygen. A chest x-ray was done which revealed worsening of the right upper lobe mass, getting worse, associated with postobstructive pneumonia. Mr. Somers was subsequently admitted to the medical floor for further medical management. HOSPITAL COURSE: Mr. Somers was admitted to the medical floor, was started on supplemental oxygen and also on broad-spectrum IV antibiotics. He was found to have an extremely elevated white cell count of 20.9, which progressively got stabilized at 16.3. Mr. Somers does have a baseline elevated white cell count. He was also found to be hyponatremic, presumably related to the cancer. He was given Samsca, and this improved to 137. His oxygen demand continued to improve. In the later part of the hospital stay, he did not need any supplemental oxygen, and he was saturating 95% to 96% in room air. His IV antibiotic was transitioned to p.o. Augmentin, and he tolerated it during the hospital course. He has been evaluated on multiple occasions by Physical Therapy including yesterday where he was able to do 185 feet with contact guard assist with front wheel walker. We think he is currently stable to go back to the rehab and continue with his physical cheondoism. Mr. Somers was found to be folate deficient, and he has been started on supplement. All the discharge instructions have been discussed with him. was at the bedside, and they both voiced understanding. Unfortunately Mr. Somers seems to have a disease that is advanced and seems to be progressing, and I think his long-term outlook looks poor. He is going to be discharged to rehab today. Time spent for discharge is 45 minutes. cc: MD Valentin Greenwood MD
[2019-06-22 12:36] VITALS: BP 133/84
== END 2019-06-22 16:54 | DRG 193 ==
LOC: SUPCPDRO → ED 12:23 → SUATTDRO 16:16 → EDIPHOLD 16:16 → 3N 18:19
PROVIDERS: ATTEND Internal Medicine